=== PATIENT | female | born 1945 | race Caucasian/White ===

== ENCOUNTER 2019-07-17 11:53 | Emergency (ER) | payer MEDICARE, OTHER ==
--- NOTE | 2019-07-17 12:08 | ED Physician Documentation ---
History of Present Illness - Stated complaint Stated Complaint: COUGH/VOMITING - Additonal information Additional information: This is a 73-year-old female with a history of COPD, fibromyalgia, and possible polycythemia vera, who presents with 1 week of cough, nasal drainage, as well as nausea and headache. Patient states she began developing a cough productive of white phlegm around 1 week ago, this has continued, she is also had clear nasal drainage. She is began developing a mild headache over a week ago, this is come and gone somewhat but is currently severe. She has had vomiting for the last 3 days associated with some epigastric discomfort. She states that she has been able to drink sips of fluids, but throws up food. She denies any dysuria, no measured fever. She does have a history of COPD, states her breathing feels that is at her baseline other than her increased cough. Review of Systems Constitutional: denies: Fever Nose: reports: Rhinorrhea / runny nose Cardiac: denies: Chest pain / pressure Respiratory: reports: Cough. denies: Dyspnea GI: reports: Abdominal Pain, Nausea : denies: Dysuria Skin: denies: Rash Neurologic: denies: Generalized weakness Immunocompromised: denies: Immunocompromised PD PAST MEDICAL HISTORY - Past Medical History Cardiovascular: High cholesterol, Murmur Respiratory: Sleep apnea GI: GERD HEENT: Chronic vision loss - Past Surgical History Past Surgical History: Yes - Present Medications Home Medications: Ambulatory Orders Medication Instructions Recorded Confirmed Azithromycin [Zithromax] 0 mg PO DAILY #6 tablet 07/17/19 Benzonatate [Tessalon Perle] 100 - 200 mg PO TID PRN #30 capsule 07/17/19 - Allergies Allergies/Adverse Reactions: Allergies Allergy/AdvReac Type Severity Reaction Status Date / Time nicotine [From Nicoderm CQ] Allergy Intermediate Skin Verified 07/17/19 12:19 Blisters levothyroxine sodium Allergy Unknown Unknown Verified 07/17/19 12:19 - Social History Does the pt smoke?: Yes Smoking Status: Current every day smoker Does the pt drink ETOH?: No Does the pt have substance abuse?: No - Immunizations Immunizations are current?: Yes - POLST Patient has POLST: No PD ED PE NORMAL - Vitals Vital signs reviewed: Yes - General General: Alert and oriented X 3, No acute distress - HEENT HEENT: Atraumatic, PERRL - Neck Neck: Supple, no meningeal sign - Cardiac Cardiac: RRR - Respiratory Respiratory: Other (Intermittent cough with inspiration. Lungs clear to auscultation bilaterally.) - Abdomen Abdomen: Soft, Non distended, Other (Mild tenderness in the left upper quadrant and epigastrium. Negative melara's sign. 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 Intervals are within normal li mits.) - Labs Labs: Laboratory Tests 07/17/19 07/17/19 07/17/19 12:40 12:40 12:40 WBC 6.0 RBC 4.62 Hgb 15.7 Hct 48.1 H MCV 104.1 H MCH 34.0 H MCHC 32.6 RDW 14.5 Plt Count 157 MPV 11.2 H Neut # (Auto) 3.6 Lymph # (Auto) 1.6 [place] # (Auto) 0.7 Eos # (Auto) 0.1 Baso # (Auto) 0.1 Absolute Nucleated RBC 0.00 Nucleated RBC % 0.0 Sodium 143 Potassium 3.2 L Chloride 100 L Carbon Dioxide 30 Anion Gap 13.0 BUN 11 Creatinine 0.7 Estimated GFR (MDRD) 82 L Glucose 128 H Calcium 10.2 Total Bilirubin 2.1 H AST 48 H ALT 24 Alkaline Phosphatase 85 Troponin I High Sens 11.2 Total Protein 8.2 Albumin 3.9 Globulin 4.3 H Albumin/Globulin Ratio 0.9 L Lipase 27 Urine Color Urine Clarity Urine pH Ur Specific [place] Urine Protein Urine Glucose (UA) Urine Ketones Urine Occult Blood Urine Nitrite Urine Bilirubin Urine Urobilinogen Ur Leukocyte Esterase Urine RBC Urine WBC Ur Squamous Epith Cells Urine Bacteria Ur Microscopic Review Urine Culture Comments 07/17/19 14:25 WBC RBC Hgb Hct MCV MCH MCHC RDW Plt Count MPV Neut # (Auto) Lymph # (Auto) [place] # (Auto) Eos # (Auto) Baso # (Auto) Absolute Nucleated RBC Nucleated RBC % Sodium Potassium Chloride Carbon Dioxide Anion Gap BUN Creatinine Estimated GFR (MDRD) Glucose Calcium Total Bilirubin AST ALT Alkaline Phosphatase Troponin I High Sens Total Protein Albumin Globulin Albumin/Globulin Ratio Lipase Urine Color DARK YELLOW Urine Clarity CLEAR Urine pH 7.0 Ur Specific [place] 1.010 Urine Protein NEGATIVE Urine Glucose (UA) NEGATIVE Urine Ketones NEGATIVE Urine Occult Blood TRACE-INTA Urine Nitrite NEGATIVE Urine Bilirubin NEGATIVE Urine Urobilinogen 1 (NORMAL) Ur Leukocyte Esterase TRACE H Urine RBC 0-5 Urine WBC 0-3 Ur Squamous Epith Cells MOD Squamous H Urine Bacteria Few Ur Microscopic Review INDICATED Urine Culture Comments NOT INDICATED - Rads (name of study) Chest Radiology: Other (Bronchial wall thickening suggestive airways disease, stable mildly enlarged cardiac silhouette, reticular opacity lung bases which may present atelectasis or scarring, no lobar consolidations or effusion) PD MEDICAL DECISION MAKING - ED course Complexity details: considered differential (URI, rhinorrhea, biliary colic, cholecystitis, migraine, tension headache, ICH, mass) ED course: On exam patient is non-toxic appearing, neurologic exam normal. Regarding her cough and rhinorrhea, CXR shows slight reticular opacity but no large opacities. URI is probably, though given her history of mild COPD and duration of symptoms we will treat with azithromycin for atypical infection, and tessalon perles for symptom control. She has no wheezing at this time and I do not think she requires steroids. Her headache has no red flags, and after tylenol and ibuprofen it is greatly improved. I discussed supportive care and return precautions. She does have epigastric pain and had some vomiting while in the ED. Labs show no leukocytosis, but AST and bilirubin are slightly elevated. UA negative. She has had some LFT elevations in the past according to patient, and I have a high suspicion for MCNEILL, but given her constellation of symptoms RUQ US was obtained and shows some sludge and small stones without signs of cholecystitis. On repeat exam her abdominal pain and vomiting have resolved. She is feeling much better overall and well enough to go home. I discussed that she may have had a component of biliary colic and should follow up with her PCP and a general surgeon. Return precuations discussed and patient was discharged home in the care of her . Departure - Departure Disposition: 01 Home, Self Care Clinical Impression: Biliary colic, Cough Condition: Good Instructions: ED Gallstone W Biliary Colic Follow-Up: Sapna Watts MD [Primary Care Provider] - Within 1 week Nakul Snowden MD [Provider Admit Priv/Credential] - (To discuss gallbladder removal) Prescriptions: Azithromycin [Zithromax] 0 mg PO DAILY #6 tablet Benzonatate [Tessalon Perle] 100 - 200 mg PO TID PRN #30 capsule PRN Reason: Cough Comments: You were seen today for headache, cough, and vomiting. Your gallbladder has some sludge in it, which may have been the cause of your vomiting and some abdominal discomfort, please follow-up with your regular doctor on this, you will likely need to get your gallbladder removed in the future. Avoid fatty meals/rich foods, which can cause gallbladder attacks. Given how long you have had a cough, we will treat you with azithromycin in case you have an Atypical infection causing this. Please follow-up with your primary care provider on your elevated liver enzymes, your cough, and your gallbladder. Return to the emergency department if you have any new or worsening symptoms Discharge Date/Time: 07/17/19 19:29
[2019-07-17] MEDS ORDERED: SODIUM CHLORIDE 0.9% 1,000 ML IV STA (12:31)
[2019-07-17] MEDS ORDERED: diphenhydrAMINE INJ 50 MG/ML VIAL IVP STA (12:33)
[2019-07-17] MEDS ORDERED: METOCLOPRAMIDE 10 MG/2 ML VIAL IVP STA (12:33)
[2019-07-17] MEDS ORDERED: FAMOTIDINE 20 MG/2 ML VIAL IVP STA (12:37)
[2019-07-17 12:50] LABS: BASOPHILS # (AUTO) 0.1 10^3/uL (0.0-0.1); EOSINOPHILS # (AUTO) 0.1 10^3/uL (0.0-0.7); EOSINOPHILS % (AUTO) 1.5 %; HGB - HEMOGLOBIN 15.7 g/dL (12.0-16.0); LYMPHOCYTES # (AUTO) 1.6 10^3/uL (1.5-3.5); LYMPHOCYTES % (AUTO) 26.2 %; MEAN CORPUSCULAR HGB CONC 32.6 g/dL (32.0-36.0); MEAN CORPUSCULAR VOLUME 104.1 fL (81.0-99.0); MEAN PLATELET VOLUME 11.2 fL (7.9-10.8); MONOCYTES # (AUTO) 0.7 10^3/uL (0.0-1.0); MONOCYTES % (AUTO) 11.1 %; NEUTROPHILS # (AUTO) 3.6 10^3/uL (1.5-6.6); NEUTROPHILS % (AUTO) 59.9 %; PLT - PLATELET COUNT 157 10^3/uL (130-450); RED BLOOD COUNT 4.62 10^6/uL (4.20-5.40); RED CELL DISTRIBUTION WIDTH 14.5 % (12.0-15.0)
[2019-07-17 13:04] LABS: ALBUMIN 3.9 g/dL (3.2-5.5); ALBUMIN/GLOBULIN RATIO 0.9 (1.0-2.2); BILIRUBIN,TOTAL 2.1 mg/dL (0.2-1.0); CALCIUM 10.2 mg/dL (8.5-10.3); CREATININE 0.7 mg/dL (0.4-1.0); TOTAL PROTEIN 8.2 g/dL (6.7-8.2)
--- NOTE | 2019-07-17 14:03 | XRAY Report ---
Reason: Persistent cough Procedure Date: 07/17/2019 Accession Number: [id number] / [id number] Procedure: XR - Chest 1 View X-Ray CPT Code: 67543 FULL RESULT: EXAM: CHEST RADIOGRAPHY EXAM DATE: 07/17/2019 01:08 PM. CLINICAL HISTORY: Persistent cough. COMPARISON: CHEST 1 VIEW 02/17/2016 7:40 PM. TECHNIQUE: 1 view. FINDINGS: Lungs/Pleura: Mild bronchial wall thickening centrally. Small amount of reticular opacity at the lung bases. No lobar consolidation. No large effusion. No pneumothorax. Mediastinum: Cardiac silhouette size appears mildly enlarged, stable. Atherosclerotic vascular calcification. Other: None. IMPRESSION: 1. Mild bronchial wall thickening centrally, suggesting airways disease. 2. Small amount of reticular opacity at the lung bases that may represent mild atelectasis, scarring, and/or pneumonitis in the proper settings. No lobar consolidation or large effusions. 3. Stable mild enlarged cardiac silhouette size. RADIA
[2019-07-17 14:39] LABS: GLUCOSE, URINE (UA) NEGATIVE (NEGATIVE); KETONES,URINE (UA) NEGATIVE (NEGATIVE); LEUKOCYTE ESTERASE, URINE TRACE (NEGATIVE); NITRITE,URINE NEGATIVE (NEGATIVE); OCCULT BLOOD,URINE TRACE-INTA (NEGATIVE); PROTEIN,URINE NEGATIVE (NEGATIVE); UROBILINOGEN,URINE 1 (NORMAL) E.U./dL (NORMAL)
[2019-07-17 14:41] LABS: CLARITY,URINE CLEAR (CLEAR)
[2019-07-17 14:44] LABS: BILIRUBIN,URINE NEGATIVE (NEGATIVE); ICTOTEST,URINE NEGATIVE
[2019-07-17 14:48] LABS: BACTERIA,URINE Few /HPF (None Seen); RBC,URINE 0-5 /HPF (0-5); SQUAMOUS EPITHELIAL CELL,UR MOD Squamous (<= Few)
[2019-07-17] MEDS ORDERED: ACETAMINOPHEN 325 MG TABLET PO STA (15:09)
[2019-07-17] MEDS ORDERED: IBUPROFEN 600 MG TABLET PO STA (15:09)
--- NOTE | 2019-07-17 17:28 | Ultrasound Report ---
Reason: vomiting, RUQ pain, assess for biliary pathology Procedure Date: 07/17/2019 Accession Number: [id number] / [id number] Procedure: US - Abdomen Limited CPT Code: FULL RESULT: EXAM: ABDOMEN ULTRASOUND LIMITED, RUQ EXAM DATE: 07/17/2019 05:10 PM. CLINICAL HISTORY: Vomiting, RUQ pain, assess for biliary pathology. COMPARISON: ABDOMEN LIMITED 02/18/2016 9:37 AM. TECHNIQUE: Real-time scanning was performed with static images obtained. FINDINGS: Liver: No suspicious lesions are seen. There are several anechoic foci within the liver which likely represent cysts. Main portal vein flow: Hepatopetal. Gallbladder: There are small stones and sludge within the gallbladder. No evidence of gallbladder wall thickening. There is a positive sonographic Malcolm sign. Biliary System: CBD measures 5 mm. No evidence of intrahepatic bile duct dilatation. Other: The right kidney demonstrates no hydronephrosis. IMPRESSION: 1. There small shadowing stones and sludge within the gallbladder. There is no evidence of gallbladder wall thickening for sonographic diagnosis of acute cholecystitis. 2. No evidence of intra-or extrahepatic bile duct dilatation. RADIA
[2019-07-17 19:30] VITALS: BP 120/70
== END 2019-07-17 19:29 | disposition home or self-care (01) ==
LOC: ED 11:53
DX: K80.20 Calculus of gallbladder without cholecystitis without obstruction (principal); K82.8 Other specified diseases of gallbladder; R51 Headache; R05 Cough; J44.9 Chronic obstructive pulmonary disease, unspecified; I44.0 Atrioventricular block, first degree; M79.7 Fibromyalgia; F17.200 Nicotine dependence, unspecified, uncomplicated
CPT/HCPCS: 36415; 71045; 76705; 80053; 81001; 83690; 84484; 85025; 93005; 96361; 96374; 96375; 99283; 99284; A9270; J1200; J2765; 81003; 87086

== ENCOUNTER 2019-08-05 15:02 | Inpatient (IN) | payer MEDICARE, OTHER ==
[2019-08-05] MEDS ORDERED: ONDANSETRON 4 MG/2 ML VIAL IVP STA ×2 (15:24→17:48)
[2019-08-05] MEDS ORDERED: SODIUM CHLORIDE 0.9% 1,000 ML IV ONE ×3 (15:24→16:22)
[2019-08-05] MEDS ORDERED: HYDROmorphone 1 MG/ML CARPUJECT IVP STA (15:24)
--- NOTE | 2019-08-05 15:30 | ED Physician Documentation ---
History of Present Illness - Stated complaint Stated Complaint: ABD PX, N/V - Chief complaint Chief Complaint: Abd Pain - History obtained from History obtained from: Patient, Family - History of Present Illness Timing: How many weeks ago (1) Pain level max: 8 Pain level now: 8 - Additonal information Additional information: 73-year-old female presents to the emergency department stating that she has nausea, vomiting and diarrhea for the past week. She states that her abdomen hurts "everywhere". She was being treated with Cefpodoxime for a "infection". Unclear where this infection was. She was seen here approximately 3 weeks ago and had an ultrasound that showed gallstones and sludge in the gallbladder but no cholecystitis. states unable to tolerate p.o. today. No fevers. No blood in the vomit or stool. Patient has been treated for left sided pneumonia recently. this is what the Cefpodoxime was for Review of Systems Ten Systems: 10 systems reviewed and negative Constitutional: denies: Fever, Chills Nose: denies: Rhinorrhea / runny nose, Congestion Throat: denies: Sore throat Respiratory: reports: Dyspnea, Cough GI: reports: Abdominal Pain, Nausea, Vomiting, Diarrhea Skin: denies: Rash Musculoskeletal: denies: Neck pain, Back pain Neurologic: denies: Headache PD PAST MEDICAL HISTORY - Past Medical History Cardiovascular: High cholesterol, Murmur Respiratory: Sleep apnea GI: GERD HEENT: Chronic vision loss Musculoskeletal: Fibromyalgia - Past Surgical History Past Surgical History: Yes - Present Medications Home Medications: Ambulatory Orders Medication Instructions Recorded Confirmed Benzonatate [Tessalon Perle] 100 - 200 mg PO TID PRN #30 capsule 07/17/19 RX: Azithromycin [Zithromax] 0 mg PO DAILY #6 tablet 07/17/19 - Allergies Allergies/Adverse Reactions: Allergies Allergy/AdvReac Type Severity Reaction Status Date / Time nicotine [From Nicoderm CQ] Allergy Intermediate Skin Verified 08/05/19 15:18 Blisters levothyroxine sodium Allergy Unknown Unknown Verified 08/05/19 15:18 - Social History Does the pt smoke?: Yes Smoking Status: Current every day smoker Does the pt drink ETOH?: No Does the pt have substance abuse?: No - Immunizations Immunizations are current?: Yes - POLST Patient has POLST: No PD ED PE NORMAL - Vitals Vital signs reviewed: Yes - General General: Alert and oriented X 3, Other (dry lips and tongue) - HEENT HEENT: Other (dry lips) - Neck Neck: Supple, no meningeal sign - Cardiac Cardiac: RRR - Respiratory Respiratory: No respiratory distress, Other (crackles bibasilar) - Abdomen Abdomen: Soft, Other (Diffuse tenderness to palpation. No peritoneal signs.) - Derm Derm: Warm and dry, No rash - Extremities Extremities: No edema - Neuro Neuro: Alert and oriented X 3 Results - Vitals Vitals: Vital Signs - 24 hr 08/05/19 08/05/19 08/05/19 15:14 15:45 16:15 Temperature 36.6 C Heart Rate 103 H 77 82 Respiratory 22 16 Rate Blood Pressure 135/72 H 148/96 H 150/89 H O2 Saturation 94 96 96 Oxygen O2 Source Nasal cannula - Labs Labs: Laboratory Tests 08/05/19 08/05/19 15:54 15:54 WBC 5.4 RBC 4.92 Hgb 16.8 H Hct 50.9 H MCV 103.5 H MCH 34.1 H MCHC 33.0 RDW 15.0 Plt Count 164 MPV 11.8 H Neut # (Auto) 2.6 Lymph # (Auto) 1.6 [place] # (Auto) 1.0 Eos # (Auto) 0.1 Baso # (Auto) 0.1 Absolute Nucleated RBC 0.00 Nucleated RBC % 0.0 Sodium 143 Potassium 2.8 L Chloride 101 Carbon Dioxide 31 Anion Gap 11.0 BUN 12 Creatinine 0.7 Estimated GFR (MDRD) 82 L Glucose 135 H Calcium 10.4 H Total Bilirubin 1.5 H AST 45 H ALT 22 Alkaline Phosphatase 82 Total Protein 7.7 Albumin 3.5 Globulin 4.2 Albumin/Globulin Ratio 0.8 L Lipase 25 - Rads (name of study) CT abdomen pelvis Radiology: Prelim report reviewed, EMP read contemporaneously, See rad report (Left lower lobe pneumonia. Lobular liver contour, correlate as to the presence of cirrhosis. Cholelithiasis. ) PD MEDICAL DECISION MAKING - ED course Complexity details: reviewed results, re-evaluated patient, considered differential, d/w patient ED course: 73-year-old female with persistent vomiting. Given Zofran, Phenergan, Zofran again. Still feeling nauseated and unable to tolerate much p.o. She is hypokalemic as well. Had an episode of bradycardia while in the emergency department, heart rate dropped to upper 30s. She has also failed outpatient antibiotics for her pneumonia. Given Rocephin and azithromycin IV. Blood cultures drawn. Lactate drawn. Discussed the case with the hospitalist, Dr. Cruz who accepts. This document was made in part using voice recognition software. While efforts are made to proofread this document, sound alike and grammatical errors may occur. Would recommend a repeat chest CT after resolution of the pneumonia to ensure that there is no mass in the left lower lung. Departure - Departure Disposition: 66 [facility] DC/Xfer Clinical Impression: Hypokalemia, Dehydration Pneumonia Qualifiers: Pneumonia type: due to unspecified organism Laterality: left Lung location: lower lobe of lung Qualified Code(s): J18.1 - Lobar pneumonia, unspecified organism Vomiting Qualifiers: Vomiting type: unspecified Vomiting Intractability: intractable Nausea presence: with nausea Qualified Code(s): R11.2 - Nausea with vomiting, unspecified Condition: Stable
[2019-08-05] MEDS ORDERED: IOVERSOL 320 100 ML VIAL IVP ONE ×2 (15:38→16:51)
[2019-08-05 16:04] LABS: BASOPHILS # (AUTO) 0.1 10^3/uL (0.0-0.1); BASOPHILS % (AUTO) 1.1 %; EOSINOPHILS # (AUTO) 0.1 10^3/uL (0.0-0.7); EOSINOPHILS % (AUTO) 1.7 %; HGB - HEMOGLOBIN 16.8 g/dL (12.0-16.0); LYMPHOCYTES # (AUTO) 1.6 10^3/uL (1.5-3.5); LYMPHOCYTES % (AUTO) 29.5 %; MEAN CORPUSCULAR HEMOGLOBIN 34.1 pg (27.0-31.0); MEAN CORPUSCULAR VOLUME 103.5 fL (81.0-99.0); MEAN PLATELET VOLUME 11.8 fL (7.9-10.8); MONOCYTES % (AUTO) 18.3 %; NEUTROPHILS # (AUTO) 2.6 10^3/uL (1.5-6.6); NEUTROPHILS % (AUTO) 48.7 %; PLT - PLATELET COUNT 164 10^3/uL (130-450); RED BLOOD COUNT 4.92 10^6/uL (4.20-5.40); WHITE BLOOD COUNT 5.4 x10^3/uL (4.8-10.8)
[2019-08-05 16:19] LABS: ALBUMIN 3.5 g/dL (3.2-5.5); ALBUMIN/GLOBULIN RATIO 0.8 (1.0-2.2); BILIRUBIN,TOTAL 1.5 mg/dL (0.2-1.0); CALCIUM 10.4 mg/dL (8.5-10.3); CREATININE 0.7 mg/dL (0.4-1.0); TOTAL PROTEIN 7.7 g/dL (6.7-8.2)
[2019-08-05] MEDS ORDERED: PROMETHAZINE INJ 25 MG in SODIUM CHLORIDE 0.9% 50 ML IV STA (16:21)
--- NOTE | 2019-08-05 17:37 | CT Report ---
Reason: diffuse abd pain, vomiting Procedure Date: 08/05/2019 Accession Number: [id number] / [id number] Procedure: CT - Abdomen/Pelvis W CPT Code: FULL RESULT: EXAM: CT ABDOMEN AND PELVIS EXAM DATE: 08/05/2019 04:49 PM. CLINICAL HISTORY: Diffuse abd pain, vomiting. COMPARISONS: CHEST W/O 04/19/2016 8:51 AM. TECHNIQUE: Routine helical CT imaging was performed through the abdomen and pelvis. IV contrast: OPTI 320 100ML. Enteric contrast: No. Reconstructions: Coronal and sagittal. In accordance with CT protocol optimization, one or more of the following dose reduction techniques were utilized for this exam: automated exposure control, adjustment of mA and/or KV based on patient size, or use of iterative reconstructive technique. FINDINGS: ABDOMEN: Lung Bases: Incompletely included lower lungs demonstrate patchy areas of consolidation in the left lower lobe with groundglass.. Heart size is within normal limits. No basilar effusions. Liver: Lobular liver contour. 2.1 cm right hepatic lobe cyst. Other low-attenuation is to small characterize, also likely reflect cysts. Spleen: Unremarkable. Pancreas: Unremarkable. Gallbladder/Bile Ducts: Cholelithiasis. Common bile duct measures 10 mm. No intrahepatic ductal dilatation. Adrenal Glands: Unremarkable. Kidneys: No mass, calculi, or hydronephrosis. Peritoneum/Mesentery/Bowel: No free fluid, free air, or collection. No intestinal obstruction or inflammation. Lymph nodes: No mesenteric, periportal, or retroperitoneal lymphadenopathy. Vasculature: Abdominal aorta is nonaneurysmal. Portal vein is patent. Hepatic veins are patent. PELVIS: The bladder is unremarkable for the degree of distention. Uterus is present. No obvious abnormally enlarged adnexal abnormalities. No pelvic lymphadenopathy. Bones: No suspicious osseous lesions. Severe degenerative disk disease from L4 S1. IMPRESSION: Left lower lobe pneumonia. Lobular liver contour, correlate as to the presence of cirrhosis. Cholelithiasis. RADIA
[2019-08-05] MEDS ORDERED: POTASSIUM CHLOR 10 MEQ/100 ML 10 MEQ/100 ML BAG IV ONE (17:49)
[2019-08-05] MEDS ORDERED: AZITHROMYCIN INJ 500 MG in SODIUM CHLORIDE 0.9% 250 ML IV STA (17:49)
[2019-08-05] MEDS ORDERED: cefTRIAXone 1 GM VIAL IVP STA (17:49)
[2019-08-05] MEDS ORDERED: MORPHINE 2 MG/ML CARPUJECT IVP PRN (18:19)
[2019-08-05] MEDS ORDERED: PROMETHAZINE 25 MG/1 ML VIAL IM PRN (18:19)
--- NOTE | 2019-08-05 19:18 | HISTORY & PHYSICAL EXAMINATION ---
Chief Complaint - Chief Complaint Chief Complaint: n/v/d History of Present Illness - Admitted From Admitted From:: [facility] - History Obtained From Records Reviewed: yes History obtained from: patient - History of Present Illness HPI Comment/Other: Patient seen and examined on 08/05/19 around 1945pm Patient is a 73 y/o female who presented to the ED with complain of nausea, vomiting and diarrhea. Her symptoms have been going on for a couple of weeks, but has gotten progressively worse. She has also been coughing. This is significantly interfering with her sleep. Today she had 3 episodes of vomiting with the most significant being in the ED. She complains of chest pain and back pain which appear to be positional. She complains of epigastric pain. She denies fever but reports chills. She has not been around anybody sick. She has not been out of the house for the the past 2-3 years. She would venture as far as the front of the house for air. The main reason is due to frequent falls. She requires help getting in and out of the bath tub. She ambulates without any walking aid at home. Her lower extremity are dry, scaly and dusky in appearance. Overall she appears uncomfortable and upset as a result. In the ED work up included a CT of the abdomen/pelvis. Though unremarkable for any significant intra-abdominal process, it indicated a left lower lobe pneumonia. As a result she is being admitted for further treatment. History - Past Medical History Cardiovascular: reports: Murmur Respiratory: reports: Sleep apnea Endocrine/Autoimmune: reports: HyPOthyroidism GI: reports: GERD HEENT: reports: Chronic vision loss Musculoskeletal: reports: Fibromyalgia MRSA Hx?: No - Past Surgical History Other past surgical history: Dental excision of extensive torus palatinus, which required full dental extraction in [address] [place] in [place] - Family & Social History Family History: Mother: (polio), Father: Cancer (unspecified) Family History Comment/Other: paternal aunt and cousin: breast cancer Living arrangement: At home Living Situation: With family Social History Notes: She smoked for over 50 years but quit about 3 years ago. She denies alcohol use. She uses edible marijuana products - POLST Patient has POLST: No POLST Status: Full Code Meds/Allgy - Home Medications Home Medications: Ambulatory Orders Medication Instructions Recorded Confirmed Azithromycin [Zithromax] 0 mg PO DAILY #6 tablet 07/17/19 Benzonatate [Tessalon Perle] 100 - 200 mg PO TID PRN #30 capsule 07/17/19 - Allergies Allergies/Adverse Reactions: Allergies Allergy/AdvReac Type Severity Reaction Status Date / Time nicotine [From Nicoderm CQ] Allergy Intermediate Skin Verified 08/05/19 15:18 Blisters levothyroxine sodium Allergy Unknown Unknown Verified 08/05/19 15:18 Review of Systems - Constitutional Constitutional: reports: Chills, Weakness. denies: Fever, Diaphoresis - Eyes Eyes: denies: Blurred vision, Dipolpia - Ears, Nose & Throat Ears, Nose & Throat: denies: Vertigo, Nasal discharge, Sore throat - Cardiovascular Cariovascular: denies: Chest pain, Edema - Respiratory Respiratory: denies: Cough, Wheezing, SOB at rest, SOB with exertion - Gastrointestinal Gastrointestinal: reports: Abdominal pain, Diarrhea, Nausea, Vomiting, Reflux/heartburn. denies: Abdominal distention, Constipation, Black stools, Bloody stools, Coffee grounds emesis - Genitourinary Genitourinary: denies: Dysuria, Frequency, Urgency, Hematuria, Incontinence, Flank pain - Musculoskeletal Musculoskeletal: reports: Back pain. denies: Muscle aches - Integumentary Integumentary: reports: Dryness. denies: Rash, Pruritis, Lesions - Neurological Neurological: reports: General weakness. denies: Focal weakness, Headache, Dizziness - Psychiatric Psychiatric: denies: Depression, Anxiety - Endocrine Endocrine: denies: Polyuria, Polydypsia - Hematologic/Lymphatic Hematologic/Lymphatic: denies: Anemia, Bruising Prior Level of Functionality: She requires some help getting in and out of the bath tub. She otherwise ambulates around the house without any walking aid. However, it is reported that she has frequent falls. She has not been out of her premises in 2-3 years. Exam - Vital Signs Vital Signs: Vital Signs x48h Temp Pulse Resp BP Pulse Ox 08/05/19 18:45 80 12 159/83 H 96 08/05/19 18:00 36.5 C 78 14 169/93 H 94 08/05/19 16:15 82 16 150/89 H 96 08/05/19 15:45 77 148/96 H 96 08/05/19 15:14 36.6 C 103 H 22 135/72 H 94 - Physical Exam General Appearance: positive: Alert, Moderate distress Eyes Bilateral: positive: Normal inspection, PERRL, EOMI ENT: positive: Dry mucous membranes Neck: positive: Nml inspection, No JVD, Trachea midline Respiratory: positive: Wheezes. negative: Chest non-tender, Breath sounds nml Cardiovascular: positive: Tachycardia Abdomen: positive: Non-tender, Nml bowel sounds, No distention. negative: Guarding, Rebound Back: positive: Nml inspection Skin: positive: No rash, Warm, Dry, Other (scaly and dusky appearance of lower extremities) Extremities: positive: Non-tender, Full ROM, No pedal edema Neurologic/Psychiatric: positive: Oriented x3, CN's nml (2-12), Motor nml, Sensation nml Conclusion/Plan - Problem List (1) Pneumonia Conclusion/Plan: Patient on rocephin and azithromycin Will continue Qualifiers: Pneumonia type: due to unspecified organism Laterality: left Lung location: lower lobe of lung Qualified Code(s): J18.1 - Lobar pneumonia, unspecified organism (2) Hypokalemia Conclusion/Plan: Patient receive KCl 40 mEq IV and 40mEq po Will recheck with am labs (4) Vomiting Conclusion/Plan: Zofran IV prn Qualifiers: Vomiting type: unspecified Vomiting Intractability: intractable Nausea presence: with nausea Qualified Code(s): R11.2 - Nausea with vomiting, unspecified (5) GERD (gastroesophageal reflux disease) Conclusion/Plan: On protonix 40mg IV daily (6) Hypothyroid Conclusion/Plan: Does not take synthroid because she reacts to a component in it. On takes supplements (7) Sleep apnea Conclusion/Plan: Did not tolerate CPAP - Lab Results Fish Bones: 08/06/19 05:05 08/06/19 05:05 Core Measures - Anticipated LOS I expect patient to be DC'd or transferred within 96 hours.: Yes - DVT/VTE - Prophylaxis VTE/DVT Device ordered at admit?: Yes VTE/DVT Prophylaxis med ordered at admit?: Yes
[2019-08-05] MEDS ORDERED: POTASSIUM CHLOR 10 MEQ/100 ML 10 MEQ/100 ML BAG IV SCH (20:00)
[2019-08-05] MEDS: PANTOPRAZOLE 40 MG VIAL IVP SCH (20:32)
[2019-08-05] MEDS: SODIUM CHLORIDE FLUSH 0.9% 10 ML SYRINGE IVP PRN ×2 (20:33→20:58)
[2019-08-05] MEDS: POTASSIUM CHLORIDE 20 MEQ TABLET PO ONE ×2 (20:33→21:36)
[2019-08-05] MEDS: HYDROmorphone 1 MG/ML CARPUJECT IVP PRN (20:57)
[2019-08-05] MEDS: guaiFENesin 600 MG TABLET PO SCH ×2 (20:58→21:34)
[2019-08-05] MEDS ORDERED: HEPARIN 5,000 UNIT/ML VIAL SUBQ SCH (21:00)
[2019-08-05] MEDS: ONDANSETRON 4 MG/2 ML VIAL IVP PRN (21:07)
[2019-08-05] MEDS: SODIUM CHLORIDE 0.9% 1,000 ML IV SCH (21:12)
[2019-08-05] MEDS: POTASSIUM CHLOR 10 MEQ/100 ML 10 MEQ/100 ML BAG IV SCH ×2 (22:11→23:19)
[2019-08-06] MEDS: POTASSIUM CHLOR 10 MEQ/100 ML 10 MEQ/100 ML BAG IV SCH (00:19)
[2019-08-06] MEDS: PROCHLORPERAZINE 10 MG/2 ML VIAL IVP PRN ×3 (00:24→18:19)
[2019-08-06] MEDS: SODIUM CHLORIDE FLUSH 0.9% 10 ML SYRINGE IVP SCH ×3 (00:25→17:26)
[2019-08-06] MEDS: SODIUM CHLORIDE FLUSH 0.9% 10 ML SYRINGE IVP PRN ×4 (00:25→07:14)
[2019-08-06] MEDS: HYDROmorphone 1 MG/ML CARPUJECT IVP PRN ×5 (01:30→22:00)
[2019-08-06] MEDS: SODIUM CHLORIDE 0.9% 1,000 ML IV SCH ×3 (05:22→19:13)
[2019-08-06 05:23] LABS: BASOPHILS % (AUTO) 0.7 %; EOSINOPHILS % (AUTO) 0.6 %; HGB - HEMOGLOBIN 14.1 g/dL (12.0-16.0); LYMPHOCYTES # (AUTO) 1.4 10^3/uL (1.5-3.5); MEAN CORPUSCULAR HEMOGLOBIN 33.4 pg (27.0-31.0); MEAN CORPUSCULAR HGB CONC 31.3 g/dL (32.0-36.0); MEAN CORPUSCULAR VOLUME 106.9 fL (81.0-99.0); MEAN PLATELET VOLUME 11.9 fL (7.9-10.8); MONOCYTES % (AUTO) 18.7 %; NEUTROPHILS # (AUTO) 2.9 10^3/uL (1.5-6.6); NEUTROPHILS % (AUTO) 54.3 %; PLT - PLATELET COUNT 140 10^3/uL (130-450); RED BLOOD COUNT 4.22 10^6/uL (4.20-5.40); WHITE BLOOD COUNT 5.4 x10^3/uL (4.8-10.8)
[2019-08-06 05:30] LABS: ALBUMIN/GLOBULIN RATIO 0.9 (1.0-2.2); BILIRUBIN,TOTAL 1.1 mg/dL (0.2-1.0); CALCIUM 9.2 mg/dL (8.5-10.3); CREATININE 0.5 mg/dL (0.4-1.0); MAGNESIUM 2.1 mg/dL (1.7-2.8); TOTAL PROTEIN 6.3 g/dL (6.7-8.2)
[2019-08-06 05:58] LABS: FOLATE 13.74 ng/mL (5.90 - >24.8)
[2019-08-06] MEDS: PANTOPRAZOLE 40 MG VIAL IVP SCH (06:41)
[2019-08-06] MEDS: cefTRIAXone 2 GM in SODIUM CHLORIDE 0.9% MINIBAG 100 ML IV SCH (08:48)
[2019-08-06] MEDS: ENOXAPARIN 40 MG/0.4 ML SYRINGE SUBQ SCH (08:48)
[2019-08-06] MEDS: SACCHAROMYCES BOULARDII 250 MG CAPSULE PO SCH ×2 (08:49→21:29)
[2019-08-06] MEDS: guaiFENesin 600 MG TABLET PO SCH ×2 (08:49→21:29)
[2019-08-06] MEDS: POLYETHYLENE GLYCOL 3350 17 GM PACKET PO SCH (08:56)
[2019-08-06] MEDS: ONDANSETRON 4 MG/2 ML VIAL IVP PRN ×3 (08:56→21:26)
[2019-08-06] MEDS ORDERED: cefTRIAXone 1 GM VIAL IV SCH (09:00)
[2019-08-06] MEDS ORDERED: AZITHROMYCIN INJ 250 MG in SODIUM CHLORIDE 0.9% 250 ML IV SCH (09:00)
[2019-08-06] MEDS: AZITHROMYCIN INJ 500 MG in SODIUM CHLORIDE 0.9% 250 ML IV SCH (10:49)
--- NOTE | 2019-08-06 13:06 | PROVIDER PROGRESS NOTE ---
Assessment/Plan - Problem List (1) Pneumonia Qualifiers: Pneumonia type: due to unspecified organism Laterality: left Lung location: lower lobe of lung Qualified Code(s): J18.1 - Lobar pneumonia, unspecified organism Assessment/Plan: 08/06 pt failed out-pt treatment for pneumonia. CXR reveals left lower lobe pneumonia. pt has 92% sats on 3 liter of O2 continue rocephin and azithromycin blood culture is pending (2) Hypokalemia 08/06 resolved (4) Vomiting Conclusion/Plan: 08/06 pt report better. it is likely caused by virus gastritis, continue Zofran IV prn continue IVF of NS continue lab monitor (5) GERD (gastroesophageal reflux disease) Conclusion/Plan: On protonix 40mg IV daily (6) Hypothyroid Conclusion/Plan: 08/06 slight lower TSH, will check free T4, and followup pt did not take synthorid (7) Sleep apnea Conclusion/Plan: stable. - Current Meds Current Meds: Current Medications Generic Name Dose Route Start Last Admin Trade Name Freq PRN Reason Stop Dose Admin Enoxaparin Sodium 40 mg 08/06/19 09:00 08/06/19 08:48 Lovenox SUBQ 40 mg DAILY OWEN Administration Guaifenesin 600 mg 08/05/19 21:00 08/06/19 08:49 Mucinex PO 600 mg BID OWEN Administration Hydromorphone HCl 1 mg 08/05/19 18:36 08/06/19 11:22 Dilaudid Inj Carp IVP 1 mg Q2HR PRN Administration PAIN Ceftriaxone Sodium 2 gm/ 100 mls @ 200 mls/hr 08/06/19 09:00 08/06/19 09:28 Sodium Chloride IV Infused DAILY OWEN Infusion Sodium Chloride 1,000 mls @ 83.333 mls/hr 08/06/19 09:00 08/06/19 08:59 Normal Saline 0.9% IV 83.333 mls/hr .Q12H OWEN Administration Azithromycin 500 mg/ Sodium 250 mls @ 83.33 mls/hr 08/06/19 10:30 08/06/19 12:46 Chloride IV 08/07/19 11:59 Infused DAILY OWEN Infusion Ondansetron HCl 4 mg 08/05/19 18:19 08/06/19 08:56 Zofran Inj IVP 4 mg Q6HR PRN Administration Nausea / Vomiting Pantoprazole Sodium 40 mg 08/05/19 19:00 08/06/19 06:41 Protonix IVP 40 mg QDAC OWEN Administration Polyethylene Glycol 17 gm 08/06/19 09:00 08/06/19 08:56 Miralax PO Not Given DAILY OWEN Prochlorperazine Edisylate 10 mg 08/05/19 18:19 08/06/19 11:22 Compazine Inj IVP 10 mg Q6HR PRN Administration Nausea / Vomiting Saccharomyces Boulardii 250 mg 08/06/19 08:00 08/06/19 08:49 Florastor PO 250 mg BIDWM OWEN Administration Sodium Chloride 10 ml 08/05/19 18:19 08/06/19 07:14 Normal Saline Flush 0.9% IVP 10 ml PRN PRN Administration NEEDED PER PROVIDER ORDERS Sodium Chloride 10 ml 08/06/19 01:00 08/06/19 08:59 Normal Saline Flush 0.9% IVP 10 ml 0100,0900,1700 OWEN Administration - Lab Result Fish Bone Diagrams: 08/06/19 05:05 08/06/19 05:05 - Additional Planning My Orders: My Active Orders 08/05/19 18:19 Activity Orders [RC] Q2HR IO [RC] IOSHIFT Initiate Bowel Care Protocol [RC] .protocol Initiate Line Care Protocol [RC] QSHIFT Initiate Personal Care Protoco [RC] .protocol Oxygen Therapy [RC] Routine Telemetry- [RC] Q4HR Vital Signs [RC] Q4HR Acetaminophen [Tylenol] 650 mg PO Q4HR PRN Ondansetron Inj [Zofran Inj] 4 mg IVP Q6HR PRN Prochlorperazine Inj [Compazine Inj] 10 mg IVP Q6HR PRN Promethazine Inj [Phenergan Inj] 25 mg IM Q6HR PRN Sodium Chloride Flush 0.9% [Normal Saline Flush 0.9%] 10 ml IVP PRN PRN Zolpidem [Ambien] 5 mg PO QPM PRN Code Status [OTHERS] Routine Condition of Patient [OTHERS] Routine DVT Prophylaxis [OTHERS] Routine 08/05/19 18:22 IV Insert [RC] .ONCE 08/05/19 18:23 SCDs [RC] QSHIFT 08/05/19 18:36 HYDROmorphone INJ CARP [Dilaudid Inj Carp] 1 mg IVP Q2HR PRN 08/05/19 18:37 Benzonatate [Tessalon] 100 mg PO TID PRN 08/05/19 19:00 Pantoprazole [Protonix] 40 mg IVP QDAC 08/05/19 Dinner Clear Liquid Diet [DIET] 08/06/19 01:00 Sodium Chloride Flush 0.9% [Normal Saline Flush 0.9%] 10 ml IVP 0100,0900,1700 08/06/19 08:00 Saccharomyces Boulardii [Florastor] 250 mg PO BIDWM 08/06/19 09:00 Enoxaparin [Lovenox] 40 mg SUBQ DAILY Polyethylene Glycol 3350 [Miralax] 17 gm PO DAILY Sodium Chloride 0.9% [Normal Saline 0.9%] 1,000 ml IV 83.333 mls/hr cefTRIAXone [Rocephin] 2 gm Sodium Chloride 0.9% Minibag [Normal Saline 0.9% Minibag] 100 ml IV DAILY 08/06/19 10:30 Azithromycin Inj [Zithromax Inj] 500 mg Sodium Chloride 0.9% [Normal Saline 0.9%] 250 ml IV DAILY 08/07/19 05:00 CBC - COMP BLD CT W/AUTO DIFF [HEME] DAILYLAB CMP [COMPREHENSIVE METABOLIC PANEL] [CHEM] DAILYLAB FREE T4 (FREE THYROXINE) [IAI] DAILYLAB 08/08/19 05:00 CBC - COMP BLD CT W/AUTO DIFF [HEME] DAILYLAB CMP [COMPREHENSIVE METABOLIC PANEL] [CHEM] DAILYLAB 08/09/19 05:00 CBC - COMP BLD CT W/AUTO DIFF [HEME] DAILYLAB CMP [COMPREHENSIVE METABOLIC PANEL] [CHEM] DAILYLAB Subjective - Subjective Patient Reports: Feeling Better Objective Vital Signs: Vital Signs - 24 hr 08/05/19 08/05/19 08/05/19 15:14 15:45 16:15 Temperature 36.6 C Heart Rate 103 H 77 82 Heart Rate [ Brachial] Respiratory 22 16 Rate Blood Pressure 135/72 H 148/96 H 150/89 H Blood Pressure [Right Radial artery] O2 Saturation 94 96 96 08/05/19 08/05/19 08/05/19 18:00 18:45 23:40 Temperature 36.5 C 36.5 C Heart Rate 78 80 Heart Rate [ 87 Brachial] Respiratory 14 12 18 Rate Blood Pressure 169/93 H 159/83 H Blood Pressure 154/86 H [Right Radial artery] O2 Saturation 94 96 92 08/06/19 08/06/19 04:59 09:00 Temperature 36.7 C 36.4 C L Heart Rate Heart Rate [ 92 50 L Brachial] Respiratory 18 18 Rate Blood Pressure Blood Pressure 133/64 H 156/71 H [Right Radial artery] O2 Saturation 90 L 92 Oxygen O2 Source Nasal cannula I&O (Last 24 Hrs): Intake and Output Totals x24h 08/04/19 08/05/19 08/06/19 23:59 23:59 23:59 Intake Total 2101 2736.667 Output Total 200 500 Balance 1901 2236.667 General: Alert, No acute distress HEENT: Atraumatic Neck: Supple Lymphatic: no adenopathy Neuro: Alert, Oriented Times 3 Cardiovascular: Regular rate Respiratory: Chest non-tender, No respiratory distress Abdomen: Normal bowel sounds Extremities: No clubbing - Results Results: Laboratory Results WBC 5.4 x10^3/uL (4.8-10.8) 08/06/19 05:05 RBC 4.22 10^6/uL (4.20-5.40) 08/06/19 05:05 Hgb 14.1 g/dL (12.0-16.0) 08/06/19 05:05 Hct 45.1 % (37.0-47.0) 08/06/19 05:05 MCV 106.9 fL (81.0-99.0) H 08/06/19 05:05 MCH 33.4 pg (27.0-31.0) H 08/06/19 05:05 MCHC 31.3 g/dL (32.0-36.0) L 08/06/19 05:05 RDW 15.0 % (12.0-15.0) 08/06/19 05:05 Plt Count 140 10^3/uL (130-450) 08/06/19 05:05 MPV 11.9 fL (7.9-10.8) H 08/06/19 05:05 Neut # (Auto) 2.9 10^3/uL (1.5-6.6) 08/06/19 05:05 Lymph # (Auto) 1.4 10^3/uL (1.5-3.5) L 08/06/19 05:05 [place] # (Auto) 1.0 10^3/uL (0.0-1.0) 08/06/19 05:05 Eos # (Auto) 0.0 10^3/uL (0.0-0.7) 08/06/19 05:05 Baso # (Auto) 0.0 10^3/uL (0.0-0.1) 08/06/19 05:05 Absolute Nucleated RBC 0.00 x10^3/uL 08/06/19 05:05 Nucleated RBC % 0.0 /100WBC 08/06/19 05:05 Sodium 145 mmol/L (135-145) 08/06/19 05:05 Potassium 3.8 mmol/L (3.5-5.0) 08/06/19 05:05 Chloride 107 mmol/L (101-111) 08/06/19 05:05 Carbon Dioxide 32 mmol/L (21-32) 08/06/19 05:05 Anion Gap 6.0 (6-13) 08/06/19 05:05 BUN 9 mg/dL (6-20) 08/06/19 05:05 Creatinine 0.5 mg/dL (0.4-1.0) 08/06/19 05:05 Estimated GFR (MDRD) 122 (>89) 08/06/19 05:05 Glucose 129 mg/dL (70-100) H 08/06/19 05:05 Lactic Acid 1.7 mmol/L (0.5-2.2) 08/05/19 18:22 Calcium 9.2 mg/dL (8.5-10.3) 08/06/19 05:05 Magnesium 2.1 mg/dL (1.7-2.8) 08/06/19 05:05 Total Bilirubin 1.1 mg/dL (0.2-1.0) H 08/06/19 05:05 AST 36 IU/L (10-42) 08/06/19 05:05 ALT 20 IU/L (10-60) 08/06/19 05:05 Alkaline Phosphatase 68 IU/L (42-121) 08/06/19 05:05 Troponin I High Sens 9.8 pg/mL (2.3-14.8) 08/06/19 00:45 Total Protein 6.3 g/dL (6.7-8.2) L 08/06/19 05:05 Albumin 3.0 g/dL (3.2-5.5) L 08/06/19 05:05 Globulin 3.3 g/dL (2.1-4.2) 08/06/19 05:05 Albumin/Globulin Ratio 0.9 (1.0-2.2) L 08/06/19 05:05 Lipase 25 U/L (22-51) 08/05/19 15:54 Vitamin B12 2180 pg/mL (180-914) H 08/06/19 05:05 Folate 13.74 ng/mL (5.90 - >24.8) 08/06/19 05:05 TSH 0.31 uIU/mL (0.34-5.60) L 08/06/19 05:09 Ethyl Alcohol < 5.0 mg/dL 08/05/19 15:54 Sepsis Event Note (H) - Evaluation Current Stage of Sepsis: Ruled out ABX Reporting Has patient been on IV antibiotics over the past 48 hours?: Yes Current Medications - Current Medications Current Medications: Current Medications Generic Name Dose Route Start Last Admin Trade Name Freq PRN Reason Stop Dose Admin Enoxaparin Sodium 40 mg 08/06/19 09:00 08/06/19 08:48 Lovenox SUBQ 40 mg DAILY OWEN Administration Guaifenesin 600 mg 08/05/19 21:00 08/06/19 08:49 Mucinex PO 600 mg BID OWEN Administration Hydromorphone HCl 1 mg 08/05/19 18:36 08/06/19 11:22 Dilaudid Inj Carp IVP 1 mg Q2HR PRN Administration PAIN Ceftriaxone Sodium 2 gm/ 100 mls @ 200 mls/hr 08/06/19 09:00 08/06/19 09:28 Sodium Chloride IV Infused DAILY OWEN Infusion Sodium Chloride 1,000 mls @ 83.333 mls/hr 08/06/19 09:00 08/06/19 08:59 Normal Saline 0.9% IV 83.333 mls/hr .Q12H OWEN Administration Azithromycin 500 mg/ Sodium 250 mls @ 83.33 mls/hr 08/06/19 10:30 08/06/19 12:46 Chloride IV 08/07/19 11:59 Infused DAILY OWEN Infusion Ondansetron HCl 4 mg 08/05/19 18:19 08/06/19 08:56 Zofran Inj IVP 4 mg Q6HR PRN Administration Nausea / Vomiting Pantoprazole Sodium 40 mg 08/05/19 19:00 08/06/19 06:41 Protonix IVP 40 mg QDAC OWEN Administration Polyethylene Glycol 17 gm 08/06/19 09:00 08/06/19 08:56 Miralax PO Not Given DAILY OWEN Prochlorperazine Edisylate 10 mg 08/05/19 18:19 08/06/19 11:22 Compazine Inj IVP 10 mg Q6HR PRN Administration Nausea / Vomiting Saccharomyces Boulardii 250 mg 08/06/19 08:00 08/06/19 08:49 Florastor PO 250 mg BIDWM OWEN Administration Sodium Chloride 10 ml 08/05/19 18:19 08/06/19 07:14 Normal Saline Flush 0.9% IVP 10 ml PRN PRN Administration NEEDED PER PROVIDER ORDERS Sodium Chloride 10 ml 08/06/19 01:00 08/06/19 08:59 Normal Saline Flush 0.9% IVP 10 ml 0100,0900,1700 OWEN Administration
[2019-08-07] MEDS: PROCHLORPERAZINE 10 MG/2 ML VIAL IVP PRN ×2 (01:09→08:20)
[2019-08-07] MEDS: SODIUM CHLORIDE FLUSH 0.9% 10 ML SYRINGE IVP SCH ×3 (01:09→15:24)
[2019-08-07] MEDS: SODIUM CHLORIDE FLUSH 0.9% 10 ML SYRINGE IVP PRN ×2 (02:09→20:27)
[2019-08-07] MEDS: HYDROmorphone 1 MG/ML CARPUJECT IVP PRN ×4 (02:09→20:26)
[2019-08-07] MEDS: ONDANSETRON 4 MG/2 ML VIAL IVP PRN ×2 (04:43→11:53)
[2019-08-07 04:49] LABS: BASOPHILS # (AUTO) 0.1 10^3/uL (0.0-0.1); BASOPHILS % (AUTO) 0.8 %; EOSINOPHILS % (AUTO) 0.7 %; HGB - HEMOGLOBIN 14.4 g/dL (12.0-16.0); LYMPHOCYTES # (AUTO) 1.3 10^3/uL (1.5-3.5); LYMPHOCYTES % (AUTO) 21.7 %; MEAN CORPUSCULAR HEMOGLOBIN 33.5 pg (27.0-31.0); MEAN CORPUSCULAR HGB CONC 31.1 g/dL (32.0-36.0); MEAN CORPUSCULAR VOLUME 107.7 fL (81.0-99.0); MONOCYTES # (AUTO) 1.1 10^3/uL (0.0-1.0); NEUTROPHILS # (AUTO) 3.4 10^3/uL (1.5-6.6); PLT - PLATELET COUNT 140 10^3/uL (130-450); RED CELL DISTRIBUTION WIDTH 15.1 % (12.0-15.0)
[2019-08-07 05:03] LABS: ALBUMIN 3.2 g/dL (3.2-5.5); ALBUMIN/GLOBULIN RATIO 0.9 (1.0-2.2); BILIRUBIN,TOTAL 1.3 mg/dL (0.2-1.0); CALCIUM 9.8 mg/dL (8.5-10.3); CREATININE 0.5 mg/dL (0.4-1.0); TOTAL PROTEIN 6.7 g/dL (6.7-8.2)
[2019-08-07] MEDS: PANTOPRAZOLE 40 MG VIAL IVP SCH (06:18)
[2019-08-07] MEDS: SODIUM CHLORIDE 0.9% 1,000 ML IV SCH ×2 (06:24→20:29)
[2019-08-07] MEDS: BENZONATATE 100 MG CAPSULE PO PRN (06:30)
[2019-08-07] MEDS: guaiFENesin 600 MG TABLET PO SCH ×2 (08:22→20:34)
[2019-08-07] MEDS: SACCHAROMYCES BOULARDII 250 MG CAPSULE PO SCH ×2 (08:22→17:50)
[2019-08-07] MEDS: cefTRIAXone 2 GM in SODIUM CHLORIDE 0.9% MINIBAG 100 ML IV SCH (08:22)
[2019-08-07] MEDS: AZITHROMYCIN INJ 500 MG in SODIUM CHLORIDE 0.9% 250 ML IV SCH (09:32)
[2019-08-07] MEDS: POLYETHYLENE GLYCOL 3350 17 GM PACKET PO SCH (09:32)
[2019-08-07] MEDS: ENOXAPARIN 40 MG/0.4 ML SYRINGE SUBQ SCH (09:32)
--- NOTE | 2019-08-07 13:38 | PROVIDER PROGRESS NOTE ---
Assessment/Plan - Problem List (1) Gastritis Assessment/Plan: The abdominal imaging showed no source. She has had this for a week and it is slowly better. Therefore the prsumed probblem is viral syndrome. Continue symptomatic management, iv fluids and antiemetics. (2) Pneumonia Qualifiers: Pneumonia type: due to unspecified organism Laterality: left Lung location: lower lobe of lung Qualified Code(s): J18.1 - Lobar pneumonia, unspecified organism Assessment/Plan: She is still coughing, but is not SOB. O2 still needed. Her exam and appearance are that of a smoker with COPD and bronchoiectasis. Continue with empiric iv antibx Will image the lungs with CXRay to get complete assessment. If the suspision is of an aspiration pneumonia by imaging, will change her antibiotics from Zithro and Ceftriax to Meropenam. Will also add nebs as she likely has COPD from smoking. Continue Mucinex and add Acapella valve for pulmonary toileting. (3) Hypothyroid Assessment/Plan: She could not tolerate prescription meds and took "supplements" (4) Sleep apnea Assessment/Plan: She could not tolerate CPAP, per record (5) Tobacco use Assessment/Plan: Her allergy list sates that Nicotine patch gave her blisters. Her exam and appearance are that of a smoker with COPD. (6) Hypokalemia Assessment/Plan: Resolved - Current Meds Current Meds: Current Medications Generic Name Dose Route Start Last Admin Trade Name Freq PRN Reason Stop Dose Admin Benzonatate 100 mg 08/05/19 18:37 08/07/19 06:30 Tessalon PO 100 mg TID PRN Administration Cough Enoxaparin Sodium 40 mg 08/06/19 09:00 08/07/19 09:32 Lovenox SUBQ Not Given DAILY OWEN Guaifenesin 600 mg 08/05/19 21:00 08/07/19 08:22 Mucinex PO 600 mg BID OWEN Administration Hydromorphone HCl 1 mg 08/05/19 18:36 08/07/19 11:53 Dilaudid Inj Carp IVP 1 mg Q2HR PRN Administration PAIN Ceftriaxone Sodium 2 gm/ 100 mls @ 200 mls/hr 08/06/19 09:00 08/07/19 09:32 Sodium Chloride IV Infused DAILY OWEN Infusion Sodium Chloride 1,000 mls @ 83.333 mls/hr 08/06/19 09:00 08/07/19 06:24 Normal Saline 0.9% IV 83.333 mls/hr .Q12H OWEN Administration Ondansetron HCl 4 mg 08/05/19 18:19 08/07/19 11:53 Zofran Inj IVP 4 mg Q6HR PRN Administration Nausea / Vomiting Pantoprazole Sodium 40 mg 08/05/19 19:00 08/07/19 06:18 Protonix IVP 40 mg QDAC OWEN Administration Polyethylene Glycol 17 gm 08/06/19 09:00 08/07/19 09:32 Miralax PO Not Given DAILY OWEN Prochlorperazine Edisylate 10 mg 08/05/19 18:19 08/07/19 08:20 Compazine Inj IVP 10 mg Q6HR PRN Administration Nausea / Vomiting Saccharomyces Boulardii 250 mg 08/06/19 08:00 08/07/19 08:22 Florastor PO 250 mg BIDWM OWEN Administration Sodium Chloride 10 ml 08/05/19 18:19 08/07/19 02:09 Normal Saline Flush 0.9% IVP 10 ml PRN PRN Administration NEEDED PER PROVIDER ORDERS Sodium Chloride 10 ml 08/06/19 01:00 08/07/19 09:33 Normal Saline Flush 0.9% IVP 10 ml 0100,0900,1700 OWEN Administration - Lab Result Fish Bone Diagrams: 08/07/19 04:37 08/07/19 04:37 Subjective - Subjective Patient Reports: Cough, Nausea Nursing Reports: Other (Only vomited liquids) Objective Vital Signs: Vital Signs - 24 hr 08/06/19 08/06/19 08/07/19 15:35 21:00 00:30 Temperature 36.8 C 36.6 C 36.5 C Heart Rate [ 90 92 84 Brachial] Respiratory 18 16 14 Rate Blood Pressure 130/69 141/61 H 108/61 [Right Radial artery] O2 Saturation 92 94 92 08/07/19 08/07/19 04:34 07:54 Temperature 36.4 C L 36.7 C Heart Rate [ 100 63 Brachial] Respiratory 16 14 Rate Blood Pressure 149/80 H 132/79 H [Right Radial artery] O2 Saturation 92 95 Oxygen O2 Source Nasal cannula I&O (Last 24 Hrs): Intake and Output Totals x24h 08/05/19 08/06/19 08/07/19 23:59 23:59 23:59 Intake Total 2101 4039.441 1401.941 Output Total 200 1700 390 Balance 1901 2339.441 1011.941 General: Alert, Other (Appears weak and lethargic) HEENT: Mucous membr. moist/pink Neck: Supple Neuro: Non Focal Cardiovascular: Regular rate Respiratory: No respiratory distress, Rhonchi Abdomen: Soft, Other (Decreased boweel sounds) Extremities: No edema, Other (Disheveld and dirt on skin of feet) - Results Results: Laboratory Results WBC 6.0 x10^3/uL (4.8-10.8) 08/07/19 04:37 RBC 4.30 10^6/uL (4.20-5.40) 08/07/19 04:37 Hgb 14.4 g/dL (12.0-16.0) 08/07/19 04:37 Hct 46.3 % (37.0-47.0) 08/07/19 04:37 MCV 107.7 fL (81.0-99.0) H 08/07/19 04:37 MCH 33.5 pg (27.0-31.0) H 08/07/19 04:37 MCHC 31.1 g/dL (32.0-36.0) L 08/07/19 04:37 RDW 15.1 % (12.0-15.0) H 08/07/19 04:37 Plt Count 140 10^3/uL (130-450) 08/07/19 04:37 MPV 12.0 fL (7.9-10.8) H 08/07/19 04:37 Neut # (Auto) 3.4 10^3/uL (1.5-6.6) 08/07/19 04:37 Lymph # (Auto) 1.3 10^3/uL (1.5-3.5) L 08/07/19 04:37 [place] # (Auto) 1.1 10^3/uL (0.0-1.0) H 08/07/19 04:37 Eos # (Auto) 0.0 10^3/uL (0.0-0.7) 08/07/19 04:37 Baso # (Auto) 0.1 10^3/uL (0.0-0.1) 08/07/19 04:37 Absolute Nucleated RBC 0.00 x10^3/uL 08/07/19 04:37 Nucleated RBC % 0.0 /100WBC 08/07/19 04:37 Sodium 145 mmol/L (135-145) 08/07/19 04:37 Potassium 3.6 mmol/L (3.5-5.0) 08/07/19 04:37 Chloride 104 mmol/L (101-111) 08/07/19 04:37 Carbon Dioxide 33 mmol/L (21-32) H 08/07/19 04:37 Anion Gap 8.0 (6-13) 08/07/19 04:37 BUN 7 mg/dL (6-20) 08/07/19 04:37 Creatinine 0.5 mg/dL (0.4-1.0) 08/07/19 04:37 Estimated GFR (MDRD) 122 (>89) 08/07/19 04:37 Glucose 143 mg/dL (70-100) H 08/07/19 04:37 Lactic Acid 1.7 mmol/L (0.5-2.2) 08/05/19 18:22 Calcium 9.8 mg/dL (8.5-10.3) 08/07/19 04:37 Magnesium 2.1 mg/dL (1.7-2.8) 08/06/19 05:05 Total Bilirubin 1.3 mg/dL (0.2-1.0) H 08/07/19 04:37 AST 37 IU/L (10-42) 08/07/19 04:37 ALT 21 IU/L (10-60) 08/07/19 04:37 Alkaline Phosphatase 67 IU/L (42-121) 08/07/19 04:37 Troponin I High Sens 9.8 pg/mL (2.3-14.8) 08/06/19 00:45 Total Protein 6.7 g/dL (6.7-8.2) 08/07/19 04:37 Albumin 3.2 g/dL (3.2-5.5) 08/07/19 04:37 Globulin 3.5 g/dL (2.1-4.2) 08/07/19 04:37 Albumin/Globulin Ratio 0.9 (1.0-2.2) L 08/07/19 04:37 Lipase 25 U/L (22-51) 08/05/19 15:54 Vitamin B12 2180 pg/mL (180-914) H 08/06/19 05:05 Folate 13.74 ng/mL (5.90 - >24.8) 08/06/19 05:05 TSH 0.31 uIU/mL (0.34-5.60) L 08/06/19 05:09 Free T4 0.83 ng/dL (0.58-1.64) 08/07/19 04:37 Ethyl Alcohol < 5.0 mg/dL 08/05/19 15:54 Influenza A (Rapid) Negative (Negative) 08/06/19 21:10 Influenza B (Rapid) Negative (Negative) 08/06/19 21:10 Sepsis Event Note (H) - Evaluation Current Stage of Sepsis: Ruled out
[2019-08-07] MEDS: IPRATROPIUM/ALBUTEROL 3 ML NEB INH SCH ×2 (16:00→20:17)
--- NOTE | 2019-08-07 17:34 | XRAY Report ---
Reason: Pneumonia Procedure Date: 08/07/2019 Accession Number: [id number] / [id number] Procedure: XR - Chest 1 View X-Ray CPT Code: 96488 FULL RESULT: EXAM: CHEST RADIOGRAPHY EXAM DATE: 08/07/2019 02:40 PM. CLINICAL HISTORY: Pneumonia. COMPARISON: CHEST 1 VIEW 07/17/2019 12:52 PM ABDOMEN/PELVIS W/ 08/05/2019 4:45 PM. TECHNIQUE: 1 view. FINDINGS: The patient is rotated to the left. Heart size is normal. Patchy opacities in the left lower lobe. Mild diffuse interstitial prominence. No pleural effusions or pneumothoraces visualized. IMPRESSION: Patchy left lower lobe opacities likely representing the pneumonia seen on the recent CT abdomen/pelvis. Mild diffuse interstitial prominence, which may represent changes from chronic pulmonary disease or mild edema. RADIA
[2019-08-08] MEDS: SODIUM CHLORIDE FLUSH 0.9% 10 ML SYRINGE IVP SCH ×3 (00:59→15:39)
[2019-08-08] MEDS: ONDANSETRON 4 MG/2 ML VIAL IVP PRN (01:21)
[2019-08-08] MEDS: HYDROmorphone 1 MG/ML CARPUJECT IVP PRN ×3 (01:21→15:39)
[2019-08-08 05:14] LABS: BASOPHILS % (AUTO) 1.1 %; EOSINOPHILS % (AUTO) 1.1 %; HGB - HEMOGLOBIN 14.5 g/dL (12.0-16.0); LYMPHOCYTES % (AUTO) 18.7 %; MEAN CORPUSCULAR HEMOGLOBIN 33.5 pg (27.0-31.0); MEAN CORPUSCULAR HGB CONC 31.6 g/dL (32.0-36.0); MEAN PLATELET VOLUME 11.9 fL (7.9-10.8); MONOCYTES % (AUTO) 16.1 %; NEUTROPHILS % (AUTO) 57.9 %; PLT - PLATELET COUNT 117 10^3/uL (130-450); RED BLOOD COUNT 4.33 10^6/uL (4.20-5.40); RED CELL DISTRIBUTION WIDTH 14.7 % (12.0-15.0); WHITE BLOOD COUNT 5.5 x10^3/uL (4.8-10.8)
[2019-08-08] MEDS: PROCHLORPERAZINE 10 MG/2 ML VIAL IVP PRN (05:19)
[2019-08-08 05:28] LABS: ABNORMAL LYMPHS % (MANUAL) 0 %; BAND NEUTROPHILS % (MANUAL) 0 %
[2019-08-08 05:30] LABS: ALBUMIN 3.2 g/dL (3.2-5.5); ALBUMIN/GLOBULIN RATIO 0.9 (1.0-2.2); BILIRUBIN,TOTAL 1.5 mg/dL (0.2-1.0); CALCIUM 9.6 mg/dL (8.5-10.3); CREATININE 0.5 mg/dL (0.4-1.0); TOTAL PROTEIN 6.7 g/dL (6.7-8.2)
[2019-08-08 06:15] LABS: EOSINOPHILS # (MANUAL) 0.1 10^3/uL (0-0.7); LYMPHOCYTES # (MANUAL) 1.4 10^3/uL (1.5-3.5); LYMPHOCYTES % (MANUAL) 25 %; MONOCYTES # (MANUAL) 0.8 10^3/uL (0.0-1.0); PLATELET MORPHOLOGY NORMAL APPEARANCE (NORMAL); PROMYELOCYTES % (MANUAL) 1 %; RBC MORPHOLOGY (MULTIPLE) NORMAL APPEARANCE (NORMAL)
[2019-08-08 06:16] LABS: DIFFERENTIAL COMMENT MANUAL DIFFERENTIAL; PLATELET ESTIMATE, MANUAL DECREASED (<130,000) (NORMAL)
[2019-08-08] MEDS: SODIUM CHLORIDE FLUSH 0.9% 10 ML SYRINGE IVP PRN (06:35)
[2019-08-08] MEDS: PANTOPRAZOLE 40 MG VIAL IVP SCH (06:35)
[2019-08-08] MEDS: guaiFENesin 600 MG TABLET PO SCH ×2 (09:33→20:41)
[2019-08-08] MEDS: SACCHAROMYCES BOULARDII 250 MG CAPSULE PO SCH ×2 (09:34→16:57)
[2019-08-08] MEDS: cefTRIAXone 2 GM in SODIUM CHLORIDE 0.9% MINIBAG 100 ML IV SCH (09:34)
[2019-08-08] MEDS: ENOXAPARIN 40 MG/0.4 ML SYRINGE SUBQ SCH (10:19)
[2019-08-08] MEDS: POLYETHYLENE GLYCOL 3350 17 GM PACKET PO SCH (10:20)
[2019-08-08] MEDS: IPRATROPIUM/ALBUTEROL 3 ML NEB INH SCH ×4 (11:28→22:20)
[2019-08-08] MEDS: POTASSIUM CHLOR 10 MEQ/100 ML 10 MEQ/100 ML BAG IV SCH ×3 (11:50→14:22)
--- NOTE | 2019-08-08 15:27 | PROVIDER PROGRESS NOTE ---
Assessment/Plan - Problem List (1) Pneumonia Qualifiers: Pneumonia type: due to unspecified organism Laterality: left Lung location: lower lobe of lung Qualified Code(s): J18.1 - Lobar pneumonia, unspecified organism Assessment/Plan: She has a productive cough, not as frequent as yesterday. She made no sputum for a sample to cx. Blood cx are neg to date. Empiric iv antibiotics continue. (2) Gastritis Assessment/Plan: Vomiting stopped yesterday, no nausea today, so diet advanced (3) Lethargy Assessment/Plan: The patient spends most of the time in a dark room, in bed, is sleeping every time I see her. She only answers me with one word answers. To her RNs, she also communicates minimally. The RN today, thought she likes to only communicate with her , who is at bedside. The reported that the patient has not left her house in 3 years. Will request a mental health eval from . (4) Hypothyroid Assessment/Plan: She is on her home meds. The TSH was low, so T4 was tested and it is low-normal. Continue her present dose. Will check a free T3 also, as she may need [place] thyroid and not Synthroid. (5) Sleep apnea Assessment/Plan: Apparently she does not tolerate a CPAP mask, (6) Tobacco use Assessment/Plan: Nicotine patch ordered. (7) Hypokalemia Assessment/Plan: Replace and follow BMP daily (8) Fall Assessment/Plan: She stood, then crumbled to ground, witnessed, not hitting her head and the Realty Loan Specialist saw her and no Xrays were needed. PT ordered to start. Will check orthostatic VS. - Current Meds Current Meds: Current Medications Generic Name Dose Route Start Last Admin Trade Name Freq PRN Reason Stop Dose Admin Albuterol/Ipratropium 3 ml 08/07/19 15:00 08/08/19 11:28 Duoneb INH 3 ml RTQID OWEN Administration Benzonatate 100 mg 08/05/19 18:37 08/07/19 06:30 Tessalon PO 100 mg TID PRN Administration Cough Enoxaparin Sodium 40 mg 08/06/19 09:00 08/08/19 10:19 Lovenox SUBQ Not Given DAILY OWEN Guaifenesin 600 mg 08/05/19 21:00 08/08/19 09:33 Mucinex PO 600 mg BID OWEN Administration Hydromorphone HCl 1 mg 08/05/19 18:36 08/08/19 05:17 Dilaudid Inj Carp IVP 1 mg Q2HR PRN Administration PAIN Ceftriaxone Sodium 2 gm/ 100 mls @ 200 mls/hr 08/06/19 09:00 08/08/19 10:20 Sodium Chloride IV Infused DAILY OWEN Infusion Ondansetron HCl 4 mg 08/05/19 18:19 08/08/19 01:21 Zofran Inj IVP 4 mg Q6HR PRN Administration Nausea / Vomiting Pantoprazole Sodium 40 mg 08/05/19 19:00 08/08/19 06:35 Protonix IVP 40 mg QDAC OWEN Administration Polyethylene Glycol 17 gm 08/06/19 09:00 08/08/19 10:20 Miralax PO Not Given DAILY OWEN Prochlorperazine Edisylate 10 mg 08/05/19 18:19 08/08/19 05:19 Compazine Inj IVP 10 mg Q6HR PRN Administration Nausea / Vomiting Saccharomyces Boulardii 250 mg 08/06/19 08:00 08/08/19 09:34 Florastor PO 250 mg BIDWM OWEN Administration Sodium Chloride 10 ml 08/05/19 18:19 08/08/19 06:35 Normal Saline Flush 0.9% IVP 10 ml PRN PRN Administration NEEDED PER PROVIDER ORDERS Sodium Chloride 10 ml 08/06/19 01:00 08/08/19 10:20 Normal Saline Flush 0.9% IVP 10 ml 0100,0900,1700 OWEN Administration - Lab Result Fish Bone Diagrams: 08/08/19 04:55 08/08/19 04:55 - Additional Planning My Orders: My Active Orders 08/07/19 14:31 Acapella (Flutter Valve Device [RC] TID 08/07/19 15:00 Ipratropium/Albuterol [Duoneb] 3 ml INH RTQID 08/08/19 Evaluate and Treat OT [OT] Routine Evaluate and Treat PT [PT] Routine 08/08/19 Dinner DIET [Soft (Low Fiber) Diet] [DIET] Subjective - Subjective Nursing Reports: No Complaints, Other (Stay mostly in bed) Objective Vital Signs: Vital Signs - 24 hr 08/07/19 08/07/19 08/07/19 15:40 16:00 20:17 Temperature 36.7 C Heart Rate 92 94 Heart Rate [ 94 Brachial] Respiratory 16 16 18 Rate Blood Pressure 144/76 H [Right Radial artery] O2 Saturation 90 L 08/08/19 08/08/19 08/08/19 01:31 05:15 07:56 Temperature 37.3 C Heart Rate Heart Rate [ 80 72 110 H Brachial] Respiratory 20 18 18 Rate Blood Pressure 138/108 H [Right Radial artery] O2 Saturation 91 L 92 91 L 08/08/19 11:51 Temperature Heart Rate 100 Heart Rate [ Brachial] Respiratory 20 Rate Blood Pressure [Right Radial artery] O2 Saturation Oxygen O2 Source Room air I&O (Last 24 Hrs): Intake and Output Totals x24h 08/06/19 08/07/19 08/08/19 23:59 23:59 23:59 Intake Total 4039.441 2801.941 1245.000 Output Total 1700 790 750 Balance 2339.441 2011.941 495.000 General: Other (Lethargic) HEENT: Mucous membr. moist/pink Neck: Supple Neuro: Non Focal, Other (Minimally communicative) Cardiovascular: No murmurs Respiratory: No respiratory distress, Rhonchi Abdomen: Normal bowel sounds, Soft Extremities: No edema - Results Results: Laboratory Results WBC 5.5 x10^3/uL (4.8-10.8) 08/08/19 04:55 RBC 4.33 10^6/uL (4.20-5.40) 08/08/19 04:55 Hgb 14.5 g/dL (12.0-16.0) 08/08/19 04:55 Hct 45.9 % (37.0-47.0) 08/08/19 04:55 MCV 106.0 fL (81.0-99.0) H 08/08/19 04:55 MCH 33.5 pg (27.0-31.0) H 08/08/19 04:55 MCHC 31.6 g/dL (32.0-36.0) L 08/08/19 04:55 RDW 14.7 % (12.0-15.0) 08/08/19 04:55 Plt Count 117 10^3/uL (130-450) L 08/08/19 04:55 MPV 11.9 fL (7.9-10.8) H 08/08/19 04:55 Neut # (Auto) Not Reportable 08/08/19 04:55 Lymph # (Auto) Not Reportable 08/08/19 04:55 [place]eves # (Auto) Not Reportable 08/08/19 04:55 Eos # (Auto) Not Reportable 08/08/19 04:55 Baso # (Auto) Not Reportable 08/08/19 04:55 Absolute Nucleated RBC Not Reportable 08/08/19 04:55 Total Counted 100 08/08/19 04:55 Band Neuts % (Manual) 0 % (0-10) 08/08/19 04:55 Abnorm Lymph % (Manual) 0 % 08/08/19 04:55 Promyelocytes % 1 % (-0) H 08/08/19 04:55 Nucleated RBC % Not Reportable 08/08/19 04:55 Neutrophils # (Manual) 3.2 10^3/uL (1.5-6.6) 08/08/19 04:55 Lymphocytes # (Manual) 1.4 10^3/uL (1.5-3.5) L 08/08/19 04:55 Monocytes # (Manual) 0.8 10^3/uL (0.0-1.0) 08/08/19 04:55 Eosinophils # (Manual) 0.1 10^3/uL (0-0.7) 08/08/19 04:55 Basophils # (Manual) 0.0 10^3/uL (0-0.1) 08/08/19 04:55 Differential Comment MANUAL DIFFERENTIAL 08/08/19 04:55 WBC Morphology NORMAL APPEARANCE (NORMAL) 08/08/19 04:55 Platelet Estimate DECREASED (<130,000) (NORMAL) 08/08/19 04:55 Platelet Morphology NORMAL APPEARANCE (NORMAL) 08/08/19 04:55 RBC Morph Micro Appear NORMAL APPEARANCE (NORMAL) 08/08/19 04:55 Sodium 143 mmol/L (135-145) 08/08/19 04:55 Potassium 3.2 mmol/L (3.5-5.0) L 08/08/19 04:55 Chloride 99 mmol/L (101-111) L 08/08/19 04:55 Carbon Dioxide 35 mmol/L (21-32) H 08/08/19 04:55 Anion Gap 9.0 (6-13) 08/08/19 04:55 BUN 6 mg/dL (6-20) 08/08/19 04:55 Creatinine 0.5 mg/dL (0.4-1.0) 08/08/19 04:55 Estimated GFR (MDRD) 122 (>89) 08/08/19 04:55 Glucose 135 mg/dL (70-100) H 08/08/19 04:55 Lactic Acid 1.7 mmol/L (0.5-2.2) 08/05/19 18:22 Calcium 9.6 mg/dL (8.5-10.3) 08/08/19 04:55 Magnesium 2.1 mg/dL (1.7-2.8) 08/06/19 05:05 Total Bilirubin 1.5 mg/dL (0.2-1.0) H 08/08/19 04:55 AST 40 IU/L (10-42) 08/08/19 04:55 ALT 25 IU/L (10-60) 08/08/19 04:55 Alkaline Phosphatase 65 IU/L (42-121) 08/08/19 04:55 Troponin I High Sens 9.8 pg/mL (2.3-14.8) 08/06/19 00:45 B-Natriuretic Peptide 202 pg/mL (5-100) H 08/08/19 04:55 Total Protein 6.7 g/dL (6.7-8.2) 08/08/19 04:55 Albumin 3.2 g/dL (3.2-5.5) 08/08/19 04:55 Globulin 3.5 g/dL (2.1-4.2) 08/08/19 04:55 Albumin/Globulin Ratio 0.9 (1.0-2.2) L 08/08/19 04:55 Lipase 25 U/L (22-51) 08/05/19 15:54 Vitamin B12 2180 pg/mL (180-914) H 08/06/19 05:05 Folate 13.74 ng/mL (5.90 - >24.8) 08/06/19 05:05 TSH 0.31 uIU/mL (0.34-5.60) L 08/06/19 05:09 Free T4 0.83 ng/dL (0.58-1.64) 08/07/19 04:37 Ethyl Alcohol < 5.0 mg/dL 08/05/19 15:54 Influenza A (Rapid) Negative (Negative) 08/06/19 21:10 Influenza B (Rapid) Negative (Negative) 08/06/19 21:10 Sepsis Event Note (H) - Evaluation Current Stage of Sepsis: Ruled out
[2019-08-08] MEDS: ZOLPIDEM 5 MG TABLET PO PRN (20:41)
[2019-08-09 06:32] LABS: BASOPHILS # (AUTO) 0.1 10^3/uL (0.0-0.1); BASOPHILS % (AUTO) 0.8 %; EOSINOPHILS # (AUTO) 0.1 10^3/uL (0.0-0.7); EOSINOPHILS % (AUTO) 1.1 %; HGB - HEMOGLOBIN 14.6 g/dL (12.0-16.0); LYMPHOCYTES # (AUTO) 1.3 10^3/uL (1.5-3.5); LYMPHOCYTES % (AUTO) 16.6 %; MEAN CORPUSCULAR HEMOGLOBIN 33.6 pg (27.0-31.0); MEAN CORPUSCULAR VOLUME 105.1 fL (81.0-99.0); MEAN PLATELET VOLUME 11.6 fL (7.9-10.8); MONOCYTES # (AUTO) 1.2 10^3/uL (0.0-1.0); MONOCYTES % (AUTO) 15.4 %; NEUTROPHILS # (AUTO) 4.7 10^3/uL (1.5-6.6); NEUTROPHILS % (AUTO) 62.4 %; PLT - PLATELET COUNT 115 10^3/uL (130-450); RED BLOOD COUNT 4.34 10^6/uL (4.20-5.40); RED CELL DISTRIBUTION WIDTH 14.5 % (12.0-15.0); WHITE BLOOD COUNT 7.5 x10^3/uL (4.8-10.8)
[2019-08-09] MEDS: SODIUM CHLORIDE FLUSH 0.9% 10 ML SYRINGE IVP SCH ×3 (06:41→18:44)
[2019-08-09] MEDS: PANTOPRAZOLE 40 MG VIAL IVP SCH (06:41)
[2019-08-09] MEDS: SODIUM CHLORIDE FLUSH 0.9% 10 ML SYRINGE IVP PRN (06:41)
[2019-08-09 06:49] LABS: ALBUMIN 3.1 g/dL (3.2-5.5); ALBUMIN/GLOBULIN RATIO 0.9 (1.0-2.2); BILIRUBIN,TOTAL 2.3 mg/dL (0.2-1.0); CALCIUM 9.8 mg/dL (8.5-10.3); CREATININE 0.6 mg/dL (0.4-1.0); TOTAL PROTEIN 6.5 g/dL (6.7-8.2)
[2019-08-09] MEDS: SACCHAROMYCES BOULARDII 250 MG CAPSULE PO SCH ×2 (08:16→16:51)
[2019-08-09] MEDS: guaiFENesin 600 MG TABLET PO SCH ×2 (08:16→21:09)
[2019-08-09] MEDS: POLYETHYLENE GLYCOL 3350 17 GM PACKET PO SCH (08:16)
[2019-08-09] MEDS: ENOXAPARIN 40 MG/0.4 ML SYRINGE SUBQ SCH (08:16)
[2019-08-09] MEDS: cefTRIAXone 2 GM in SODIUM CHLORIDE 0.9% MINIBAG 100 ML IV SCH (08:16)
[2019-08-09] MEDS: IPRATROPIUM/ALBUTEROL 3 ML NEB INH SCH ×4 (11:54→20:51)
[2019-08-09] MEDS: D5NS W/20 MEQ KCL 1,000 ML IV SCH (12:01)
[2019-08-09] MEDS: ACETAMINOPHEN 325 MG TABLET PO PRN ×2 (12:01→23:52)
[2019-08-09] MEDS: POTASSIUM CHLOR 10 MEQ/100 ML 10 MEQ/100 ML BAG IV SCH ×2 (12:01→13:35)
--- NOTE | 2019-08-09 12:02 | PROVIDER PROGRESS NOTE ---
Assessment/Plan - Problem List (1) Cholecystitis Assessment/Plan: When I saw her alone and asked her if she is in pain, she said No but with her hands she grabbed her upper abdomen. When the arrived, he reported that she was fidgety all night, could not find a comfortable position, going from bed to dangling to sitting in chair. When he is in the room, she says her abdomen hurts and "when can this get done", by which she means get her gallbadder dealt with. The described that on a prior admission, gallbladder sludge was seen. Bilirubin elevated today. Will request a Gen Surg consult regarding poss acute cholecystitis. I spoke to Dr Antonio Ware. Will change to npo for bowel rest and restart iv fluids, which were weaned down to off over the past 2 days. Will order RUQ US imaging. Will check a Lactic acid level, regarding sepsis. Will change antibiotics to iv Cefepinme and iv Flagyl. (2) Alkalosis Assessment/Plan: The Cougar Hunter reported that she has had 0% of her diet yesterday and today. Her iv fluids have been decreasing for 2 days, due to CXR report of pulmonary vascular congestion. Will rstart fluids at a slow rate, because she is clinically dehydrated. (The excavation laborer could not get blood for the STAT troponin ordered). (3) Pulmonary edema Assessment/Plan: The CXR done for PNA F/U has been showing increasing pulmonary edema, no description of an infiltrate. The empiric Zithro and Ceftriaxone will be stopped. Will obtain a BNP, troponins and EKG. (4) Altered mental status Assessment/Plan: For the first 3 days she slept day and night in a dark room, only answered with grunts. I had ordered a mental health eval for poss depression, which was cancelled due to her increased abdominal pain this a.m. The told me he is usually communicative at home. But he did confirm that she mostly stays inside, he does the shopping and errands but she does go to doctor's appointment. He noticed her sleepiness when she started getting the narcotics for pain. The providers and RNs & CNAs have noticed that she only communicates when the is in the room, and talks to him only. He sleeps here, then goes home briefly during the day. Will stop iv Dilaudid and decrease sedating meds. She does need a mental health eval for possible depression, agoraphobia or other psych disorder, when clinically stable. (5) Hypothyroid Assessment/Plan: He is on her home medications. Her TSH came back low therefore T3 and T4 were checked and these are in the normal range (6) Sleep apnea Assessment/Plan: She reported that she could not tolerate a CPAP (7) Tobacco use Assessment/Plan: Nicotine patch was offered but it is listed as an allergy that gives her skin blisters. Her EKG done today shows a wandering atrial pacemaker, which is common in COPDers. (8) Hypokalemia Assessment/Plan: Replace with iv riders and retsart iv fluids with KCl. Follow BMP daily. (9) Fall Assessment/Plan: Yesterday, she stood up alone at the bedside, then crumbled to ground, witnessed by the and her RN, not hitting her head and the [employer] Specialist saw her and no Xrays were needed. PT has been ordered to start, then cancelled when her labs became abnormal and she had abdominal pain Will check orthostatic VS. (10) Gastritis Assessment/Plan: She had presented with 1 week of laying in bed with nausea & vomiting and the impression was that of viral gastroenteritis No further N/V, but has abdominal pain (see above) (11) Pneumonia Qualifiers: Pneumonia type: due to unspecified organism Laterality: left Lung location: lower lobe of lung Qualified Code(s): J18.1 - Lobar pneumonia, unspecified organism Assessment/Plan: Ruled out - Current Meds Current Meds: Current Medications Generic Name Dose Route Start Last Admin Trade Name Freq PRN Reason Stop Dose Admin Albuterol/Ipratropium 3 ml 08/07/19 15:00 08/09/19 11:54 Duoneb INH 3 ml RTQID OWEN Administration Benzonatate 100 mg 08/05/19 18:37 08/07/19 06:30 Tessalon PO 100 mg TID PRN Administration Cough Enoxaparin Sodium 40 mg 08/06/19 09:00 08/09/19 08:16 Lovenox SUBQ 40 mg DAILY OWEN Administration Guaifenesin 600 mg 08/05/19 21:00 08/09/19 08:16 Mucinex PO 600 mg BID OWEN Administration Ondansetron HCl 4 mg 08/05/19 18:19 08/08/19 01:21 Zofran Inj IVP 4 mg Q6HR PRN Administration Nausea / Vomiting Pantoprazole Sodium 40 mg 08/05/19 19:00 08/09/19 06:41 Protonix IVP 40 mg QDAC OWEN Administration Polyethylene Glycol 17 gm 08/06/19 09:00 08/09/19 08:16 Miralax PO Not Given DAILY OWEN Prochlorperazine Edisylate 10 mg 08/05/19 18:19 08/08/19 05:19 Compazine Inj IVP 10 mg Q6HR PRN Administration Nausea / Vomiting Saccharomyces Boulardii 250 mg 08/06/19 08:00 08/09/19 08:16 Florastor PO 250 mg BIDWM OWEN Administration Sodium Chloride 10 ml 08/05/19 18:19 08/09/19 06:41 Normal Saline Flush 0.9% IVP 10 ml PRN PRN Administration NEEDED PER PROVIDER ORDERS Sodium Chloride 10 ml 08/06/19 01:00 08/09/19 08:17 Normal Saline Flush 0.9% IVP 10 ml 0100,0900,1700 OWEN Administration Zolpidem Tartrate 5 mg 08/05/19 18:19 08/08/19 20:41 Ambien PO 5 mg QPM PRN Administration Insomnia - Lab Result Fish Bone Diagrams: 08/09/19 06:20 08/09/19 06:20 - EKG Results EKG Interpreted Independently: Yes EKG Findings: `Wandering atrial pacemaker (3 different P wave morphologies), PVCs, late R wave progression. - Additional Planning My Orders: My Active Orders 08/08/19 19:34 Miscellaenous Nursing Order [RC] QSHIFT 08/09/19 Consult [General Surgery Consult] [CONS] Routine 08/09/19 09:00 Social Work Consult [CONS] Routine 08/09/19 11:08 1:1 Observation [RC] once Chest 1 View X-Ray [XR] Stat 08/09/19 11:50 Abdomen Limited [US] Stat 08/09/19 11:58 DIET [NPO except Meds] [DIET] 08/09/19 12:00 D5.9NS W/20 MEQ KCL @ 83.333 mls/hr D5ns W/20 Meq KCl 1,000 ml IV 83.333 mls/hr Potassium Chloride/Water 10 mEq/100 mL q1h Potassium Chlor 10 Meq/100 ml [Potassium Chloride] 10 meq in 100 ml IV Q1H metroNIDAZOLE/NS 500 mg/100 mL Q8H metroNIDAZOLE 500 MG/100 ML [Flagyl 500 mg/100 ml] 500 mg in 100 ml IV Q8H 08/09/19 13:00 Cefepime 1 gm Sodium Chloride 0.9% Minibag [Normal Saline 0.9% Minibag] 100 ml IV TID 08/10/19 05:00 CMP [COMPREHENSIVE METABOLIC PANEL] [CHEM] DAILYLAB Subjective - Subjective Patient Reports: No Complaints, Abdominal Pain, Back Pain, Other (I visited this patient 3 times today, the first time she was sitting up in a chair and had no complaints, only her nurse was there and she was not communicating with us. The second time her was there and she was fidgeting and complaining of abdominal pain. Later in the day at my third visit she was smiling and wanted to go for a walk using a walker.) Objective Vital Signs: Vital Signs - 24 hr 08/08/19 08/08/19 08/08/19 17:19 17:23 21:20 Temperature 36.7 C 36.7 C Heart Rate 99 98 Heart Rate [ 99 Brachial] Respiratory 20 20 20 Rate Blood Pressure 164/66 H [Right Radial artery] O2 Saturation 91 L 94 08/09/19 08/09/19 08/09/19 04:13 05:01 08:53 Temperature 36.6 C 36.8 C Heart Rate Heart Rate [ 114 H 100 11 L Brachial] Respiratory 22 20 22 Rate Blood Pressure 110/90 H 145/117 H [Right Radial artery] O2 Saturation 90 L 92 87 L Oxygen O2 Source Nasal cannula I&O (Last 24 Hrs): Intake and Output Totals x24h 08/07/19 08/08/19 08/09/19 23:59 23:59 23:59 Intake Total 2801.941 1345.000 100 Output Total 790 1200 1340 Balance 2011.941 145.000 -1240 General: Mild distress HEENT: Mucous membr. moist/pink, Other (Wearing O2 per nasal cannula) Neck: Supple Neuro: Other (Minimally communicative, grossly normal motor exam, I am unable to assess if she is oriented since she does not answer me) Cardiovascular: Regular rate Respiratory: No respiratory distress Abdomen: Soft, Other (No guarding or rebound, Obese with pannus) Extremities: No edema - Results Results: Laboratory Results WBC 7.5 x10^3/uL (4.8-10.8) 08/09/19 06:20 RBC 4.34 10^6/uL (4.20-5.40) 08/09/19 06:20 Hgb 14.6 g/dL (12.0-16.0) 08/09/19 06:20 Hct 45.6 % (37.0-47.0) 08/09/19 06:20 MCV 105.1 fL (81.0-99.0) H 08/09/19 06:20 MCH 33.6 pg (27.0-31.0) H 08/09/19 06:20 MCHC 32.0 g/dL (32.0-36.0) 08/09/19 06:20 RDW 14.5 % (12.0-15.0) 08/09/19 06:20 Plt Count 115 10^3/uL (130-450) L 08/09/19 06:20 MPV 11.6 fL (7.9-10.8) H 08/09/19 06:20 Neut # (Auto) 4.7 10^3/uL (1.5-6.6) 08/09/19 06:20 Lymph # (Auto) 1.3 10^3/uL (1.5-3.5) L 08/09/19 06:20 [place] # (Auto) 1.2 10^3/uL (0.0-1.0) H 08/09/19 06:20 Eos # (Auto) 0.1 10^3/uL (0.0-0.7) 08/09/19 06:20 Baso # (Auto) 0.1 10^3/uL (0.0-0.1) 08/09/19 06:20 Absolute Nucleated RBC 0.00 x10^3/uL 08/09/19 06:20 Total Counted 100 08/08/19 04:55 Band Neuts % (Manual) 0 % (0-10) 08/08/19 04:55 Abnorm Lymph % (Manual) 0 % 08/08/19 04:55 Promyelocytes % 1 % (-0) H 08/08/19 04:55 Nucleated RBC % 0.0 /100WBC 08/09/19 06:20 Neutrophils # (Manual) 3.2 10^3/uL (1.5-6.6) 08/08/19 04:55 Lymphocytes # (Manual) 1.4 10^3/uL (1.5-3.5) L 08/08/19 04:55 Monocytes # (Manual) 0.8 10^3/uL (0.0-1.0) 08/08/19 04:55 Eosinophils # (Manual) 0.1 10^3/uL (0-0.7) 08/08/19 04:55 Basophils # (Manual) 0.0 10^3/uL (0-0.1) 08/08/19 04:55 Differential Comment MANUAL DIFFERENTIAL 08/08/19 04:55 WBC Morphology NORMAL APPEARANCE (NORMAL) 08/08/19 04:55 Platelet Estimate DECREASED (<130,000) (NORMAL) 08/08/19 04:55 Platelet Morphology NORMAL APPEARANCE (NORMAL) 08/08/19 04:55 RBC Morph Micro Appear NORMAL APPEARANCE (NORMAL) 08/08/19 04:55 Sodium 143 mmol/L (135-145) 08/09/19 06:20 Potassium 3.1 mmol/L (3.5-5.0) L 08/09/19 06:20 Chloride 92 mmol/L (101-111) L 08/09/19 06:20 Carbon Dioxide 41 mmol/L (21-32) H* 08/09/19 06:20 Anion Gap 10.0 (6-13) 08/09/19 06:20 BUN 6 mg/dL (6-20) 08/09/19 06:20 Creatinine 0.6 mg/dL (0.4-1.0) 08/09/19 06:20 Estimated GFR (MDRD) 99 (>89) 08/09/19 06:20 Glucose 124 mg/dL (70-100) H 08/09/19 06:20 Lactic Acid 2.6 mmol/L (0.5-2.2) H 08/09/19 11:40 Calcium 9.8 mg/dL (8.5-10.3) 08/09/19 06:20 Magnesium 2.1 mg/dL (1.7-2.8) 08/06/19 05:05 Total Bilirubin 2.3 mg/dL (0.2-1.0) H 08/09/19 06:20 AST 47 IU/L (10-42) H 08/09/19 06:20 ALT 28 IU/L (10-60) 08/09/19 06:20 Alkaline Phosphatase 59 IU/L (42-121) 08/09/19 06:20 Troponin I High Sens 9.8 pg/mL (2.3-14.8) 08/06/19 00:45 B-Natriuretic Peptide 202 pg/mL (5-100) H 08/08/19 04:55 Total Protein 6.5 g/dL (6.7-8.2) L 08/09/19 06:20 Albumin 3.1 g/dL (3.2-5.5) L 08/09/19 06:20 Globulin 3.4 g/dL (2.1-4.2) 08/09/19 06:20 Albumin/Globulin Ratio 0.9 (1.0-2.2) L 08/09/19 06:20 Lipase 25 U/L (22-51) 08/05/19 15:54 Vitamin B12 2180 pg/mL (180-914) H 08/06/19 05:05 Folate 13.74 ng/mL (5.90 - >24.8) 08/06/19 05:05 TSH 0.31 uIU/mL (0.34-5.60) L 08/06/19 05:09 Free T4 0.83 ng/dL (0.58-1.64) 08/07/19 04:37 Free T3 pg/mL 2.56 pg/mL (2.5-3.9) 08/09/19 06:20 Ethyl Alcohol < 5.0 mg/dL 08/05/19 15:54 Influenza A (Rapid) Negative (Negative) 08/06/19 21:10 Influenza B (Rapid) Negative (Negative) 08/06/19 21:10 Sepsis Event Note (H) - Evaluation Current Stage of Sepsis: Ruled out
--- NOTE | 2019-08-09 12:13 | XRAY Report ---
Reason: F/U [place] Procedure Date: 08/09/2019 Accession Number: [id number] / [id number] Procedure: XR - Chest 1 View X-Ray CPT Code: 86398 FULL RESULT: EXAM: CHEST RADIOGRAPHY EXAM DATE: 08/09/2019 11:31 AM. CLINICAL HISTORY: Follow up pneumonia. COMPARISON: CHEST 1 VIEW 08/07/2019 2:27 PM. TECHNIQUE: 1 view. FINDINGS: Lungs/Pleura: Interval worsening of alveolar and interstitial opacification with interseptal markings seen. Findings are compatible with worsening pulmonary edema. Mediastinum: Within exam limitations, the cardiomediastinal contour is normal. Other: None. IMPRESSION: Findings compatible with worsening pulmonary edema. RADIA
[2019-08-09] MEDS: CEFEPIME 1 GM in SODIUM CHLORIDE 0.9% MINIBAG 100 ML IV SCH ×3 (13:36→22:30)
[2019-08-09] MEDS: metroNIDAZOLE 500 MG/100 ML 500 MG/100 ML BAG IV SCH ×2 (14:16→21:09)
--- NOTE | 2019-08-09 14:45 | CONSULTATION NOTE ---
Referring Provider Name of Referring Provider:: Dr. Cruz Consult Date: 08/09/19 Chief Complaint - Chief Complaint Chief Complaint: N/V/D/abd pain History of Present Illness - Admitted From Admitted From:: ER - History Obtained From Records Reviewed: yes History obtained from: pt, Exam Limitations: pt is extremely poor historian, almost nonverbal - History of Present Illness HPI Comment/Other: 73 yo female admitted 4 days ago with hx of several weeks of N/V/D together with cough, dyspnea, chest, epigastric and back pain. Sx are intermittent but worsening. Pt was seen in the ER on 07/17/19 where a chest x ray showed possible pneumonitis and US showed small stones and sludge in gallbladder but no signs of acute cholecystitis or biliary ductal dilatation. LFTs were notable for a bili of 2.1, AST mildly elevated, ow nl; lipase nl. She was treated as an outpatient with antibiotics but returned to the ER 4 days ago with persistent, worsening sx and was admitted. CT abd/pelvis on 08/05 was notable for LLL pneumonia, cholelithiasis, CBD 10 mm, and changes in the liver possibly due to cirrhosis. LFT's have remain unchanged on admission and since except for slight increase in Bili to 2.4. She has been treated for pneumonitis since admission. She is minimally communicative, with her providing the history. Since admission she has been having intermittent episodes of upper abdominal and back pain per . One episode of vomiting has been noted several days ago, and no diarrhea since admit. She currently is awake, smiling, and denying any abdominal pain or nausea. No hx hepatitis or jaundice, recent wt loss, or hx of alcoho lism. A repeat abd US has been ordered for today, but has not been performed as of the time of this report. A CXR obtained today showed findings c/w pulmonary edema. There is no hx of fatty food intolerance. History - Past Medical History Cardiovascular: reports: Murmur Respiratory: reports: Sleep apnea Endocrine/Autoimmune: reports: HyPOthyroidism GI: reports: GERD HEENT: reports: Chronic vision loss Musculoskeletal: reports: Fibromyalgia MRSA Hx?: No - Past Surgical History Other past surgical history: Dental excision of extensive torus palatinus, which required full dental extraction in [address] Shannon in [place] - Family & Social History Family History: Mother: (polio), Father: Cancer (unspecified) Family History Comment/Other: paternal aunt and cousin: breast cancer Living arrangement: At home Living Situation: With family Social History Notes: She smoked for over 50 years but quit about 3 years ago. She denies alcohol use. She uses edible marijuana products - Substance History Use: Uses substance without health or social issues: Cannabis - POLST Patient has POLST: No POLST Status: Full Code Meds/Allgy - Home Medications Home Medications: Ambulatory Orders Medication Instructions Recorded Confirmed No Known Home Medications 08/07/19 08/07/19 - Allergies Allergies/Adverse Reactions: Allergies Allergy/AdvReac Type Severity Reaction Status Date / Time nicotine [From Nicoderm CQ] Allergy Intermediate Skin Verified 08/05/19 15:18 Blisters levothyroxine sodium Allergy Unknown Unknown Verified 08/05/19 15:18 Review of Systems - All Other Systems All Other Systems: reports: Other (pt minimally communicative; unable to obtain) Exam - Vital Signs Reviewed Vital Signs: Yes Vital Signs: Vital Signs x48h Temp Pulse Pulse Resp BP Pulse Ox 08/09/19 13:41 37 C 108 H 20 146/74 H 93 08/09/19 11:54 100 20 08/09/19 08:53 36.8 C 11 L 22 145/117 H 87 L - Physical Exam General Appearance: positive: No acute distress Eyes Bilateral: positive: Normal inspection, No scleral icterus ENT: positive: ENT inspection nml Neck: positive: Nml inspection, No JVD. negative: Lymphadenopathy (R), Lymphadenopathy (L) Respiratory: positive: Chest non-tender, No respiratory distress, Wheezes (expiratory left base; decreased breath sounds left base) Cardiovascular: positive: Regular rate & rhythm, No murmur, No gallop Abdomen: positive: Non-tender, Other (marked truncal obesity). negative: Guarding, Rebound, Hepatomegaly, Splenomegaly, Mass Back: positive: Nml inspection. negative: CVA tenderness (R), CVA tenderness (L) Skin: positive: Color nml, Warm, Dry Extremities: positive: Pedal edema (2+ ankle edema). negative: Calf tenderness Conclusion/Plan - Diagnosis Diagnosis: 1. Episodic upper abd pain associated with abn lfts and recent US showing cholelithiasis; s/s c/w biliary colic +/- choledocholithiasis. No clinical evidence of acute cholecystitis or cholangitis at present. Also possible would be IBS, hepatocellular disease, and asympt cholelithiasis. 2. pneumonitis, being treated. 3. Pulmonary edema, etiology unclear - Plan Plan: Agree with repeat abd US. Would also consider an echocardiogram if one hasn't been performed recently. Pt would seem to be at high risk for surgery at present and if acute cholecystitis is suspected, would recommend percutaneous drainage with elective surgery after cardiopulmonary status has been further evaluated and optimized. Consider ERCP if choledocholithiasis is suspected. Discussed with Dr. Cruz. Will follow. Thanks, - Lab Results Lab results reviewed: Yes Fish Bones: 08/09/19 06:20 08/09/19 06:20 - Diagnostic Imaging Results Diagnostic Imaging Results: positive: Final report reviewed, Read independently Diagnostic Imaging Results Comments: See HPI
--- NOTE | 2019-08-09 16:32 | Ultrasound Report ---
Reason: RUQ pain and increased bili Procedure Date: 08/09/2019 Accession Number: [id number] / [id number] Procedure: US - Abdomen Limited CPT Code: FULL RESULT: EXAM: ABDOMEN LIMITED EXAM DATE: 08/09/2019 04:01 PM INDICATION: Right upper quadrant pain and increased bilirubin. COMPARISONS: ABDOMEN LIMITED 07/17/2019 4:05 PM. TECHNIQUE: Real-time scanning was performed with static images obtained. FINDINGS: Liver: Liver parenchyma is heterogeneous and moderately hyperechoic. No discrete liver masses or intrahepatic bile duct dilation. However, evaluation for masses is limited secondary to the echogenicity. Multiple stable liver cysts identified. Right liver measures 18 cm. Main portal vein flow: Hepatopetal. Gallbladder: Sludge and gallstones are present. No gallbladder wall thickening or pericholecystic fluid. Negative sonographic Malcolm's sign. Biliary System: CBD measures up to 9 mm. No intrahepatic or extrahepatic ductal dilatation. Pancreas: Limited visualization. Right kidney: Not imaged. Abdominal aorta and IVC: Not specifically imaged. Other: Study limited by patient tolerance and cough. IMPRESSION: 1. Moderately echogenic enlarged liver. No mass. 2. Gallstones and sludge. No sonographic findings concerning for acute cholecystitis. Common bile duct measures up to 9 mm. No intrahepatic bile duct dilation. No common bile duct stone. 3. Study limited by body habitus, bowel gas and cough. RADIA
[2019-08-09] MEDS: BENZONATATE 100 MG CAPSULE PO PRN ×2 (19:23→23:53)
[2019-08-09] MEDS: ZOLPIDEM 5 MG TABLET PO PRN (23:53)
[2019-08-10] MEDS: SODIUM CHLORIDE FLUSH 0.9% 10 ML SYRINGE IVP SCH ×3 (00:15→17:40)
[2019-08-10] MEDS: guaiFENesin/CODEINE 5 ML UDC PO PRN (00:59)
[2019-08-10] MEDS: D5NS W/20 MEQ KCL 1,000 ML IV SCH (02:48)
[2019-08-10] MEDS: metroNIDAZOLE 500 MG/100 ML 500 MG/100 ML BAG IV SCH ×3 (04:14→20:51)
[2019-08-10] MEDS: CEFEPIME 1 GM in SODIUM CHLORIDE 0.9% MINIBAG 100 ML IV SCH ×3 (05:24→22:33)
[2019-08-10 05:49] LABS: ALBUMIN 2.9 g/dL (3.2-5.5); CALCIUM 9.6 mg/dL (8.5-10.3); CREATININE 0.5 mg/dL (0.4-1.0); TOTAL PROTEIN 5.8 g/dL (6.7-8.2)
[2019-08-10] MEDS: IPRATROPIUM/ALBUTEROL 3 ML NEB INH SCH ×4 (06:21→21:39)
[2019-08-10] MEDS: SODIUM CHLORIDE FLUSH 0.9% 10 ML SYRINGE IVP PRN (06:54)
[2019-08-10] MEDS: PANTOPRAZOLE 40 MG VIAL IVP SCH (06:54)
[2019-08-10] MEDS: POLYETHYLENE GLYCOL 3350 17 GM PACKET PO SCH (08:53)
[2019-08-10] MEDS: SACCHAROMYCES BOULARDII 250 MG CAPSULE PO SCH ×2 (08:56→16:38)
[2019-08-10] MEDS: ENOXAPARIN 40 MG/0.4 ML SYRINGE SUBQ SCH (09:02)
[2019-08-10] MEDS ORDERED: VANCOMYCIN PER PHARMACY 1 GM in SODIUM CHLORIDE 0.9% 250 ML IV SCH (10:00)
[2019-08-10] MEDS ORDERED: FUROSEMIDE 20 MG/2 ML VIAL IVP ONE (10:00)
[2019-08-10 10:21] LABS: BASOPHILS # (AUTO) 0.1 10^3/uL (0.0-0.1); EOSINOPHILS # (AUTO) 0.2 10^3/uL (0.0-0.7); EOSINOPHILS % (AUTO) 2.4 %; HGB - HEMOGLOBIN 14.9 g/dL (12.0-16.0); LYMPHOCYTES # (AUTO) 1.4 10^3/uL (1.5-3.5); LYMPHOCYTES % (AUTO) 21.1 %; MEAN CORPUSCULAR HEMOGLOBIN 33.3 pg (27.0-31.0); MEAN CORPUSCULAR HGB CONC 31.8 g/dL (32.0-36.0); MEAN CORPUSCULAR VOLUME 104.9 fL (81.0-99.0); MEAN PLATELET VOLUME 11.3 fL (7.9-10.8); MONOCYTES # (AUTO) 0.8 10^3/uL (0.0-1.0); MONOCYTES % (AUTO) 12.4 %; NEUTROPHILS # (AUTO) 4.1 10^3/uL (1.5-6.6); NEUTROPHILS % (AUTO) 60.2 %; PLT - PLATELET COUNT 118 10^3/uL (130-450); RED BLOOD COUNT 4.47 10^6/uL (4.20-5.40); WHITE BLOOD COUNT 6.8 x10^3/uL (4.8-10.8)
[2019-08-10] MEDS: POTASSIUM CHLOR 10 MEQ/100 ML 10 MEQ/100 ML BAG IV SCH ×4 (10:41→18:42)
[2019-08-10] MEDS ORDERED: VANCOMYCIN INJ 2 GM in SODIUM CHLORIDE 0.9% 500 ML IV ONE (11:00)
[2019-08-10] MEDS ORDERED: POTASSIUM CHLORIDE 20 MEQ TABLET PO ONE (12:00)
--- NOTE | 2019-08-10 12:09 | PROVIDER PROGRESS NOTE ---
Assessment/Plan - Problem List (1) Pneumonia Qualifiers: Pneumonia type: due to unspecified organism Laterality: left Lung location: lower lobe of lung Qualified Code(s): J18.1 - Lobar pneumonia, unspecified organism Assessment/Plan: pt still need 4 liter to remain 92-93% sats now, it is likely from pt's pulmonary edema from her image study. pt's WBC is normal and no fever or chill. continue antibiotics at hospital now, D/C IVF and with lower dosage of lasix incentive spirometer 2) Cholecystitis pt denies N/V and abdominal pain. pt's abdomen is soft and good bowel sound. US of abdomen reveals no common bile stone or no acute cholecystitis. discussed with Dr. Ware for care plan: resume pt's diet, as tolerate to low fat diet, followup Dr. Ware as out-pt. (3) Pulmonary edema Assessment/Plan: ECHO is still pending image studied reveals pulmonary edema add Lasix, and stop IVF (4) Altered mental status resolved. pt is active to have logical conversation with me and nurse (5) Hypothyroid Assessment/Plan: continue home meds, stable. Her TSH came back low therefore T3 and T4 were checked and these are in the normal range (6) Sleep apnea Assessment/Plan: She reported that she could not tolerate a CPAP (7) Tobacco use Assessment/Plan: Nicotine patch was offered but it is listed as an allergy that gives her skin blisters. Her EKG done today shows a wandering atrial pacemaker, which is common in COPDers. (8) Hypokalemia Assessment/Plan: today pt's K is 2.9, continue replacement Follow BMP daily. (9) Fall Assessment/Plan: fall precaution order PT/OT negative for orthostatic VS. (10) Gastritis Assessment/Plan: improved, No further N/V, no abdominal pain resume diet, advance as tolerated - Current Meds Current Meds: Current Medications Generic Name Dose Route Start Last Admin Trade Name Freq PRN Reason Stop Dose Admin Acetaminophen 650 mg 08/05/19 18:19 08/09/19 23:52 Tylenol PO 650 mg Q4HR PRN Administration Pain 1 to 4 Albuterol/Ipratropium 3 ml 08/07/19 15:00 08/10/19 10:50 Duoneb INH 3 ml RTQID OWEN Administration Benzonatate 100 mg 08/05/19 18:37 08/09/19 23:53 Tessalon PO 100 mg TID PRN Administration Cough Enoxaparin Sodium 40 mg 08/06/19 09:00 08/10/19 09:02 Lovenox SUBQ 40 mg DAILY OWEN Administration Guaifenesin/Codeine Phosphate 5 ml 08/10/19 00:29 08/10/19 00:59 Robitussin Ac PO 5 ml Q6HR PRN Administration Cough Cefepime HCl 1 gm/ Sodium 100 mls @ 200 mls/hr 08/09/19 13:00 08/10/19 05:55 Chloride IV Infused TID OWEN Infusion Metronidazole 500 mg in 100 mls @ 100 mls/hr 08/09/19 13:00 08/10/19 05:15 Flagyl 500 Mg/100 Ml IV Infused Q8H OWEN Infusion Potassium Chloride 10 meq in 100 mls @ 25 mls/hr 08/10/19 10:00 08/10/19 10:41 Potassium Chloride IV 08/10/19 13:59 25 mls/hr Q1H OWEN Administration Ondansetron HCl 4 mg 08/05/19 18:19 08/08/19 01:21 Zofran Inj IVP 4 mg Q6HR PRN Administration Nausea / Vomiting Pantoprazole Sodium 40 mg 08/05/19 19:00 08/10/19 06:54 Protonix IVP 40 mg QDAC OWEN Administration Polyethylene Glycol 17 gm 08/06/19 09:00 08/10/19 08:53 Miralax PO Not Given DAILY [facility] Prochlorperazine Edisylate 10 mg 08/05/19 18:19 08/08/19 05:19 Compazine Inj IVP 10 mg Q6HR PRN Administration Nausea / Vomiting Saccharomyces Boulardii 250 mg 08/06/19 08:00 08/10/19 08:56 Florastor PO 250 mg BIDWM OWEN Administration Sodium Chloride 10 ml 08/05/19 18:19 08/10/19 06:54 Normal Saline Flush 0.9% IVP 10 ml PRN PRN Administration NEEDED PER PROVIDER ORDERS Sodium Chloride 10 ml 08/06/19 01:00 08/10/19 08:53 Normal Saline Flush 0.9% IVP Not Given 0100,0900,1700 OWEN Zolpidem Tartrate 5 mg 08/05/19 18:19 08/09/19 23:53 Ambien PO 5 mg QPM PRN Administration Insomnia - Lab Result Fish Bone Diagrams: 08/10/19 10:04 08/10/19 05:19 - Additional Planning My Orders: My Active Orders 08/10/19 Evaluate and Treat OT [OT] Routine Evaluate and Treat PT [PT] Routine 08/10/19 09:21 Chest 1 View X-Ray [XR] Stat 08/10/19 09:27 Incentive Spirometry - RT [RC] .TID 08/10/19 10:00 Potassium Chlor 10 Meq/100 ml [Potassium Chloride] 10 meq in 100 ml IV Q1H 08/10/19 Breakfast Full Liquid Diet [DIET] 08/11/19 05:00 CBC - COMP BLD CT W/AUTO DIFF [HEME] DAILYLAB CMP [COMPREHENSIVE METABOLIC PANEL] [CHEM] DAILYLAB 08/12/19 05:00 CBC - COMP BLD CT W/AUTO DIFF [HEME] DAILYLAB CMP [COMPREHENSIVE METABOLIC PANEL] [CHEM] DAILYLAB 08/13/19 05:00 CBC - COMP BLD CT W/AUTO DIFF [HEME] DAILYLAB CMP [COMPREHENSIVE METABOLIC PANEL] [CHEM] DAILYLAB 08/14/19 05:00 CBC - COMP BLD CT W/AUTO DIFF [HEME] DAILYLAB CMP [COMPREHENSIVE METABOLIC PANEL] [CHEM] DAILYLAB Subjective - Subjective Patient Reports: Feeling Better Objective Vital Signs: Vital Signs - 24 hr 08/09/19 08/09/19 08/09/19 13:41 15:57 16:30 Temperature 37 C 36.7 C Heart Rate 96 Heart Rate [ 108 H 98 Brachial] Heart Rate [ Sitting (After 1 Minute)] Heart Rate [ Standing (After 1 Minute)] Heart Rate [ Supine] Respiratory 20 18 18 Rate Blood Pressure 120/81 H [Left Radial artery] Blood Pressure 146/74 H [Right Radial artery] Blood Pressure [Sitting (After 1 Minute)] Blood Pressure [Standing ( After 1 Minute) ] Blood Pressure [Supine] O2 Saturation 93 94 08/09/19 08/09/19 08/09/19 18:44 20:51 23:04 Temperature 37.0 C Heart Rate 108 H Heart Rate [ 102 H Brachial] Heart Rate [ 109 H Sitting (After 1 Minute)] Heart Rate [ 111 H Standing (After 1 Minute)] Heart Rate [ 105 H Supine] Respiratory 20 18 Rate Blood Pressure 151/85 H [Left Radial artery] Blood Pressure [Right Radial artery] Blood Pressure 187/107 H [Sitting (After 1 Minute)] Blood Pressure 167/108 H [Standing ( After 1 Minute) ] Blood Pressure 141/99 H [Supine] O2 Saturation 92 08/10/19 08/10/19 08/10/19 06:00 06:23 08:20 Temperature 36.9 C 36.4 C L Heart Rate 68 Heart Rate [ 86 99 Brachial] Heart Rate [ Sitting (After 1 Minute)] Heart Rate [ Standing (After 1 Minute)] Heart Rate [ Supine] Respiratory 24 16 20 Rate Blood Pressure 112/63 149/95 H [Left Radial artery] Blood Pressure [Right Radial artery] Blood Pressure [Sitting (After 1 Minute)] Blood Pressure [Standing ( After 1 Minute) ] Blood Pressure [Supine] O2 Saturation 92 92 08/10/19 08/10/19 09:00 10:50 Temperature Heart Rate 102 H Heart Rate [ Brachial] Heart Rate [ 93 Sitting (After 1 Minute)] Heart Rate [ 85 Standing (After 1 Minute)] Heart Rate [ 96 Supine] Respiratory 24 Rate Blood Pressure [Left Radial artery] Blood Pressure [Right Radial artery] Blood Pressure 174/74 H [Sitting (After 1 Minute)] Blood Pressure 167/148 H [Standing ( After 1 Minute) ] Blood Pressure 158/82 H [Supine] O2 Saturation Oxygen O2 Source Nasal cannula I&O (Last 24 Hrs): Intake and Output Totals x24h 08/08/19 08/09/19 08/10/19 23:59 23:59 23:59 Intake Total 8554.856 2779.275 1076.389 Output Total 1200 2265 625 Balance 145.000 -774.725 451.389 General: Alert, No acute distress HEENT: Atraumatic Neck: Supple Lymphatic: no adenopathy Neuro: Alert, Oriented Times 3 Cardiovascular: Regular rate Respiratory: Chest non-tender, No respiratory distress, Breath sounds nml Abdomen: Normal bowel sounds, Soft Extremities: No clubbing - Results Results: Laboratory Results WBC 6.8 x10^3/uL (4.8-10.8) 08/10/19 10:04 RBC 4.47 10^6/uL (4.20-5.40) 08/10/19 10:04 Hgb 14.9 g/dL (12.0-16.0) 08/10/19 10:04 Hct 46.9 % (37.0-47.0) 08/10/19 10:04 MCV 104.9 fL (81.0-99.0) H 08/10/19 10:04 MCH 33.3 pg (27.0-31.0) H 08/10/19 10:04 MCHC 31.8 g/dL (32.0-36.0) L 08/10/19 10:04 RDW 15.0 % (12.0-15.0) 08/10/19 10:04 Plt Count 118 10^3/uL (130-450) L 08/10/19 10:04 MPV 11.3 fL (7.9-10.8) H 08/10/19 10:04 Neut # (Auto) 4.1 10^3/uL (1.5-6.6) 08/10/19 10:04 Lymph # (Auto) 1.4 10^3/uL (1.5-3.5) L 08/10/19 10:04 [place] # (Auto) 0.8 10^3/uL (0.0-1.0) 08/10/19 10:04 Eos # (Auto) 0.2 10^3/uL (0.0-0.7) 08/10/19 10:04 Baso # (Auto) 0.1 10^3/uL (0.0-0.1) 08/10/19 10:04 Absolute Nucleated RBC 0.00 x10^3/uL 08/10/19 10:04 Total Counted 100 08/08/19 04:55 Band Neuts % (Manual) 0 % (0-10) 08/08/19 04:55 Abnorm Lymph % (Manual) 0 % 08/08/19 04:55 Promyelocytes % 1 % (-0) H 08/08/19 04:55 Nucleated RBC % 0.0 /100WBC 08/10/19 10:04 Neutrophils # (Manual) 3.2 10^3/uL (1.5-6.6) 08/08/19 04:55 Lymphocytes # (Manual) 1.4 10^3/uL (1.5-3.5) L 08/08/19 04:55 Monocytes # (Manual) 0.8 10^3/uL (0.0-1.0) 08/08/19 04:55 Eosinophils # (Manual) 0.1 10^3/uL (0-0.7) 08/08/19 04:55 Basophils # (Manual) 0.0 10^3/uL (0-0.1) 08/08/19 04:55 Differential Comment MANUAL DIFFERENTIAL 08/08/19 04:55 Manual Slide Review Cancelled 08/10/19 08:04 WBC Morphology NORMAL APPEARANCE (NORMAL) 08/08/19 04:55 Platelet Estimate DECREASED (<130,000) (NORMAL) 08/08/19 04:55 Platelet Morphology NORMAL APPEARANCE (NORMAL) 08/08/19 04:55 RBC Morph Micro Appear NORMAL APPEARANCE (NORMAL) 08/08/19 04:55 Sodium 145 mmol/L (135-145) 08/10/19 05:19 Potassium 2.9 mmol/L (3.5-5.0) L 08/10/19 05:19 Chloride 97 mmol/L (101-111) L 08/10/19 05:19 Carbon Dioxide 41 mmol/L (21-32) H* 08/10/19 05:19 Anion Gap 7.0 (6-13) 08/10/19 05:19 BUN 8 mg/dL (6-20) 08/10/19 05:19 Creatinine 0.5 mg/dL (0.4-1.0) 08/10/19 05:19 Estimated GFR (MDRD) 122 (>89) 08/10/19 05:19 Glucose 127 mg/dL (70-100) H 08/10/19 05:19 Lactic Acid 1.8 mmol/L (0.5-2.2) 08/10/19 10:04 Calcium 9.6 mg/dL (8.5-10.3) 08/10/19 05:19 Magnesium 2.1 mg/dL (1.7-2.8) 08/06/19 05:05 Total Bilirubin 2.0 mg/dL (0.2-1.0) H 08/10/19 05:19 AST 44 IU/L (10-42) H 08/10/19 05:19 ALT 27 IU/L (10-60) 08/10/19 05:19 Alkaline Phosphatase 57 IU/L (42-121) 08/10/19 05:19 Troponin I High Sens 18.6 pg/mL (2.3-14.8) H* 08/10/19 10:04 B-Natriuretic Peptide 141 pg/mL (5-100) H 08/09/19 23:34 Total Protein 5.8 g/dL (6.7-8.2) L 08/10/19 05:19 Albumin 2.9 g/dL (3.2-5.5) L 08/10/19 05:19 Globulin 2.9 g/dL (2.1-4.2) 08/10/19 05:19 Albumin/Globulin Ratio 1.0 (1.0-2.2) 08/10/19 05:19 Lipase 25 U/L (22-51) 08/05/19 15:54 Vitamin B12 2180 pg/mL (180-914) H 08/06/19 05:05 Folate 13.74 ng/mL (5.90 - >24.8) 08/06/19 05:05 TSH 0.31 uIU/mL (0.34-5.60) L 08/06/19 05:09 Free T4 0.83 ng/dL (0.58-1.64) 08/07/19 04:37 Free T3 pg/mL 2.56 pg/mL (2.5-3.9) 08/09/19 06:20 Ethyl Alcohol < 5.0 mg/dL 08/05/19 15:54 Influenza A (Rapid) Negative (Negative) 08/06/19 21:10 Influenza B (Rapid) Negative (Negative) 08/06/19 21:10 Slides for Path Review Cancelled 08/10/19 08:04 Sepsis Event Note (H) - Evaluation Current Stage of Sepsis: Ruled out ABX Reporting Has patient been on IV antibiotics over the past 48 hours?: Yes Current Medications - Current Medications Current Medications: Active Medications Acetaminophen (Tylenol) 650 mg PO Q4HR PRN PRN Reason: Pain 1 to 4 Last Admin: 08/09/19 23:52 Dose: 650 mg Albuterol/Ipratropium (Duoneb) 3 ml INH RTQID OWEN Last Admin: 08/10/19 10:50 Dose: 3 ml Benzonatate (Tessalon) 100 mg PO TID PRN PRN Reason: Cough Last Admin: 08/09/19 23:53 Dose: 100 mg Enoxaparin Sodium (Lovenox) 40 mg SUBQ DAILY [facility] Last Admin: 08/10/19 09:02 Dose: 40 mg Guaifenesin/Codeine Phosphate (Robitussin Ac) 5 ml PO Q6HR PRN PRN Reason: Cough Last Admin: 08/10/19 00:59 Dose: 5 ml Cefepime HCl 1 gm/ Sodium (Chloride) 100 mls @ 200 mls/hr IV TID [facility] Last Infusion: 08/10/19 05:55 Dose: Infused Metronidazole (Flagyl 500 Mg/100 Ml) 500 mg in 100 mls @ 100 mls/hr IV Q8H [facility] Last Infusion: 08/10/19 05:15 Dose: Infused Potassium Chloride (Potassium Chloride) 10 meq in 100 mls @ 25 mls/hr IV Q1H [facility] Stop: 08/10/19 13:59 Last Admin: 08/10/19 10:41 Dose: 25 mls/hr Ondansetron HCl (Zofran Inj) 4 mg IVP Q6HR PRN PRN Reason: Nausea / Vomiting Last Admin: 08/08/19 01:21 Dose: 4 mg Pantoprazole Sodium (Protonix) 40 mg IVP QDAC [facility] Last Admin: 08/10/19 06:54 Dose: 40 mg Polyethylene Glycol (Miralax) 17 gm PO DAILY [facility] Last Admin: 08/10/19 08:53 Dose: Not Given Prochlorperazine Edisylate (Compazine Inj) 10 mg IVP Q6HR PRN PRN Reason: Nausea / Vomiting Last Admin: 08/08/19 05:19 Dose: 10 mg Promethazine HCl (Phenergan Inj) 25 mg IM Q6HR PRN PRN Reason: Nausea / Vomiting Saccharomyces Boulardii (Florastor) 250 mg PO BIDWM [facility] Last Admin: 08/10/19 08:56 Dose: 250 mg Sodium Chloride (Normal Saline Flush 0.9%) 10 ml IVP PRN PRN PRN Reason: NEEDED PER PROVIDER ORDERS Last Admin: 08/10/19 06:54 Dose: 10 ml Sodium Chloride (Normal Saline Flush 0.9%) 10 ml IVP 0100,0900,1700 [facility] Last Admin: 08/10/19 08:53 Dose: Not Given Zolpidem Tartrate (Ambien) 5 mg PO QPM PRN PRN Reason: Insomnia Last Admin: 08/09/19 23:53 Dose: 5 mg No Known Home Medications 08/07/19
--- NOTE | 2019-08-10 12:14 | XRAY Report ---
Reason: SOB Procedure Date: 08/10/2019 Accession Number: [id number] / [id number] Procedure: XR - Chest 1 View X-Ray CPT Code: 77404 FULL RESULT: EXAM: CHEST RADIOGRAPHY EXAM DATE: 08/10/2019 11:47 AM. CLINICAL HISTORY: Shortness of breath. COMPARISON: CHEST 1 VIEW 08/09/2019 11:15 AM. TECHNIQUE: 1 view. FINDINGS: Lungs/Pleura: Medial lung apices obscured by patient's chin. Bilateral alveolar and interstitial opacification, with a central predominance, slightly worse versus previous. Findings are compatible with pulmonary edema. Mediastinum: Imaged heart size stable. Other: None. IMPRESSION: Findings compatible with worsening pulmonary edema. RADIA
[2019-08-10] MEDS: ACETAMINOPHEN 325 MG TABLET PO PRN ×2 (14:07→20:47)
--- NOTE | 2019-08-10 16:35 | PROVIDER PROGRESS NOTE ---
Assessment/Plan - Problem List (1) Cholelithiasis Qualifiers: Cholelithiasis location: gallbladder Cholecystitis presence: without cholecystitis Biliary obstruction: without biliary obstruction Qualified Code(s): K80.20 - Calculus of gallbladder without cholecystitis without obstruction Assessment/Plan: clinically asymptomatic at this time; no evidence of acute cholecystitis or choledocholithiasis on US or clinically. Unclear if patient's recent sx are related to biliary tract. Rec: continue low fat diet; out pt f/u and consider cholecystectomy if biliary sx become evident. Discussed with pt and her who agree with this plan to avoid surgery unless clearly indicated. (2) Abnormal LFTs (liver function tests) Assessment/Plan: Etiology unclear; ddx includes NAFLD, hepatitis, meds, biliary, etc; stable at this time. Rec: further eval as appropriate. Not clearly biliary given w/u to date. - Current Meds Current Meds: Current Medications Generic Name Dose Route Start Last Admin Trade Name Freq PRN Reason Stop Dose Admin Acetaminophen 650 mg 08/05/19 18:19 08/10/19 14:07 Tylenol PO 650 mg Q4HR PRN Administration Pain 1 to 4 Albuterol/Ipratropium 3 ml 08/07/19 15:00 08/10/19 15:30 Duoneb INH 3 ml RTQID OWEN Administration Benzonatate 100 mg 08/05/19 18:37 08/09/19 23:53 Tessalon PO 100 mg TID PRN Administration Cough Enoxaparin Sodium 40 mg 08/06/19 09:00 08/10/19 09:02 Lovenox SUBQ 40 mg DAILY OWEN Administration Guaifenesin/Codeine Phosphate 5 ml 08/10/19 00:29 08/10/19 00:59 Robitussin Ac PO 5 ml Q6HR PRN Administration Cough Cefepime HCl 1 gm/ Sodium 100 mls @ 200 mls/hr 08/09/19 13:00 08/10/19 15:20 Chloride IV 200 mls/hr TID OWEN Administration Metronidazole 500 mg in 100 mls @ 100 mls/hr 08/09/19 13:00 08/10/19 14:05 Flagyl 500 Mg/100 Ml IV 100 mls/hr Q8H OWEN Administration Ondansetron HCl 4 mg 08/05/19 18:19 08/08/19 01:21 Zofran Inj IVP 4 mg Q6HR PRN Administration Nausea / Vomiting Pantoprazole Sodium 40 mg 08/05/19 19:00 08/10/19 06:54 Protonix IVP 40 mg QDAC OWEN Administration Polyethylene Glycol 17 gm 08/06/19 09:00 08/10/19 08:53 Miralax PO Not Given DAILY OWEN Prochlorperazine Edisylate 10 mg 08/05/19 18:19 08/08/19 05:19 Compazine Inj IVP 10 mg Q6HR PRN Administration Nausea / Vomiting Saccharomyces Boulardii 250 mg 08/06/19 08:00 08/10/19 08:56 Florastor PO 250 mg BIDWM OWEN Administration Sodium Chloride 10 ml 08/05/19 18:19 08/10/19 06:54 Normal Saline Flush 0.9% IVP 10 ml PRN PRN Administration NEEDED PER PROVIDER ORDERS Sodium Chloride 10 ml 08/06/19 01:00 08/10/19 08:53 Normal Saline Flush 0.9% IVP Not Given 0100,0900,1700 OWEN Zolpidem Tartrate 5 mg 08/05/19 18:19 08/09/19 23:53 Ambien PO 5 mg QPM PRN Administration Insomnia - Lab Result Lab results reviewed: Yes Fish Bone Diagrams: 08/10/19 10:04 08/10/19 05:19 - Diagnostic Imaging Results Diagnostic Imaging Results: Final report reviewed Diagnostic Imaging Results Comments: US abd from yesterday shows stones and sludge in gb but no sign of acute cholecystitis or choledocholithiasis or significant biliary dilatation. - Additional Planning Condition/Complexity: Improved Plan Discussed with:: Patient, Spouse, Other (hospitalist) Time Spent: 15-30 minutes Subjective - Subjective Patient Reports: Feeling Better, Resting Comfortably (denies abd pain, N/V/D. tolerating a low fat diet well.) Objective Vital Signs: Vital Signs - 24 hr 08/09/19 08/09/19 08/09/19 18:44 20:51 23:04 Temperature 37.0 C Heart Rate 108 H Heart Rate [ Activity] Heart Rate [ 102 H Brachial] Heart Rate [ 109 H Sitting (After 1 Minute)] Heart Rate [ 111 H Standing (After 1 Minute)] Heart Rate [ 105 H Supine] Respiratory 20 18 Rate Blood Pressure [Activity] Blood Pressure 151/85 H [Left Radial artery] Blood Pressure 187/107 H [Sitting (After 1 Minute)] Blood Pressure 167/108 H [Standing ( After 1 Minute) ] Blood Pressure 141/99 H [Supine] O2 Saturation 92 08/10/19 08/10/19 08/10/19 06:00 06:23 08:20 Temperature 36.9 C 36.4 C L Heart Rate 68 Heart Rate [ Activity] Heart Rate [ 86 99 Brachial] Heart Rate [ Sitting (After 1 Minute)] Heart Rate [ Standing (After 1 Minute)] Heart Rate [ Supine] Respiratory 24 16 20 Rate Blood Pressure [Activity] Blood Pressure 112/63 149/95 H [Left Radial artery] Blood Pressure [Sitting (After 1 Minute)] Blood Pressure [Standing ( After 1 Minute) ] Blood Pressure [Supine] O2 Saturation 92 92 08/10/19 08/10/19 08/10/19 09:00 10:50 12:25 Temperature Heart Rate 102 H Heart Rate [ 112 H Activity] Heart Rate [ Brachial] Heart Rate [ 93 Sitting (After 1 Minute)] Heart Rate [ 85 Standing (After 1 Minute)] Heart Rate [ 96 Supine] Respiratory 24 Rate Blood Pressure 190/95 H [Activity] Blood Pressure [Left Radial artery] Blood Pressure 174/74 H [Sitting (After 1 Minute)] Blood Pressure 167/148 H [Standing ( After 1 Minute) ] Blood Pressure 158/82 H [Supine] O2 Saturation 08/10/19 15:30 Temperature Heart Rate 92 Heart Rate [ Activity] Heart Rate [ Brachial] Heart Rate [ Sitting (After 1 Minute)] Heart Rate [ Standing (After 1 Minute)] Heart Rate [ Supine] Respiratory 20 Rate Blood Pressure [Activity] Blood Pressure [Left Radial artery] Blood Pressure [Sitting (After 1 Minute)] Blood Pressure [Standing ( After 1 Minute) ] Blood Pressure [Supine] O2 Saturation Oxygen O2 Source Nasal cannula I&O (Last 24 Hrs): Intake and Output Totals x24h 08/08/19 08/09/19 08/10/19 23:59 23:59 23:59 Intake Total 6327.670 9773.275 1276.389 Output Total 1200 2265 1725 Balance 145.000 -774.725 -448.611 General: Alert, Cooperative, No acute distress Respiratory: Chest non-tender, No respiratory distress, Breath sounds nml Abdomen: Soft, No tenderness, No hepatospenomegaly, No masses - Results Results: Laboratory Results WBC 6.8 x10^3/uL (4.8-10.8) 08/10/19 10:04 RBC 4.47 10^6/uL (4.20-5.40) 08/10/19 10:04 Hgb 14.9 g/dL (12.0-16.0) 08/10/19 10:04 Hct 46.9 % (37.0-47.0) 08/10/19 10:04 MCV 104.9 fL (81.0-99.0) H 08/10/19 10:04 MCH 33.3 pg (27.0-31.0) H 08/10/19 10:04 MCHC 31.8 g/dL (32.0-36.0) L 08/10/19 10:04 RDW 15.0 % (12.0-15.0) 08/10/19 10:04 Plt Count 118 10^3/uL (130-450) L 08/10/19 10:04 MPV 11.3 fL (7.9-10.8) H 08/10/19 10:04 Neut # (Auto) 4.1 10^3/uL (1.5-6.6) 08/10/19 10:04 Lymph # (Auto) 1.4 10^3/uL (1.5-3.5) L 08/10/19 10:04 [place]air # (Auto) 0.8 10^3/uL (0.0-1.0) 08/10/19 10:04 Eos # (Auto) 0.2 10^3/uL (0.0-0.7) 08/10/19 10:04 Baso # (Auto) 0.1 10^3/uL (0.0-0.1) 08/10/19 10:04 Absolute Nucleated RBC 0.00 x10^3/uL 08/10/19 10:04 Total Counted 100 08/08/19 04:55 Band Neuts % (Manual) 0 % (0-10) 08/08/19 04:55 Abnorm Lymph % (Manual) 0 % 08/08/19 04:55 Promyelocytes % 1 % (-0) H 08/08/19 04:55 Nucleated RBC % 0.0 /100WBC 08/10/19 10:04 Neutrophils # (Manual) 3.2 10^3/uL (1.5-6.6) 08/08/19 04:55 Lymphocytes # (Manual) 1.4 10^3/uL (1.5-3.5) L 08/08/19 04:55 Monocytes # (Manual) 0.8 10^3/uL (0.0-1.0) 08/08/19 04:55 Eosinophils # (Manual) 0.1 10^3/uL (0-0.7) 08/08/19 04:55 Basophils # (Manual) 0.0 10^3/uL (0-0.1) 08/08/19 04:55 Differential Comment MANUAL DIFFERENTIAL 08/08/19 04:55 Manual Slide Review Cancelled 08/10/19 08:04 WBC Morphology NORMAL APPEARANCE (NORMAL) 08/08/19 04:55 Platelet Estimate DECREASED (<130,000) (NORMAL) 08/08/19 04:55 Platelet Morphology NORMAL APPEARANCE (NORMAL) 08/08/19 04:55 RBC Morph Micro Appear NORMAL APPEARANCE (NORMAL) 08/08/19 04:55 Sodium 145 mmol/L (135-145) 08/10/19 05:19 Potassium 2.9 mmol/L (3.5-5.0) L 08/10/19 05:19 Chloride 97 mmol/L (101-111) L 08/10/19 05:19 Carbon Dioxide 41 mmol/L (21-32) H* 08/10/19 05:19 Anion Gap 7.0 (6-13) 08/10/19 05:19 BUN 8 mg/dL (6-20) 08/10/19 05:19 Creatinine 0.5 mg/dL (0.4-1.0) 08/10/19 05:19 Estimated GFR (MDRD) 122 (>89) 08/10/19 05:19 Glucose 127 mg/dL (70-100) H 08/10/19 05:19 Lactic Acid 1.8 mmol/L (0.5-2.2) 08/10/19 10:04 Calcium 9.6 mg/dL (8.5-10.3) 08/10/19 05:19 Magnesium 2.1 mg/dL (1.7-2.8) 08/06/19 05:05 Total Bilirubin 2.0 mg/dL (0.2-1.0) H 08/10/19 05:19 AST 44 IU/L (10-42) H 08/10/19 05:19 ALT 27 IU/L (10-60) 08/10/19 05:19 Alkaline Phosphatase 57 IU/L (42-121) 08/10/19 05:19 Troponin I High Sens 18.6 pg/mL (2.3-14.8) H* 08/10/19 10:04 B-Natriuretic Peptide 141 pg/mL (5-100) H 08/09/19 23:34 Total Protein 5.8 g/dL (6.7-8.2) L 08/10/19 05:19 Albumin 2.9 g/dL (3.2-5.5) L 08/10/19 05:19 Globulin 2.9 g/dL (2.1-4.2) 08/10/19 05:19 Albumin/Globulin Ratio 1.0 (1.0-2.2) 08/10/19 05:19 Lipase 25 U/L (22-51) 08/05/19 15:54 Vitamin B12 2180 pg/mL (180-914) H 08/06/19 05:05 Folate 13.74 ng/mL (5.90 - >24.8) 08/06/19 05:05 TSH 0.31 uIU/mL (0.34-5.60) L 08/06/19 05:09 Free T4 0.83 ng/dL (0.58-1.64) 08/07/19 04:37 Free T3 pg/mL 2.56 pg/mL (2.5-3.9) 08/09/19 06:20 Ethyl Alcohol < 5.0 mg/dL 08/05/19 15:54 Influenza A (Rapid) Negative (Negative) 08/06/19 21:10 Influenza B (Rapid) Negative (Negative) 08/06/19 21:10 Slides for Path Review Cancelled 08/10/19 08:04 Sepsis Event Note (H) - Evaluation Current Stage of Sepsis: Ruled out ABX Reporting Has patient been on IV antibiotics over the past 48 hours?: Yes
[2019-08-10] MEDS: BENZONATATE 100 MG CAPSULE PO PRN ×2 (16:38→22:33)
[2019-08-10] MEDS ORDERED: hydrALAZINE INJ 20 MG/ML VIAL IVP PRN (17:54)
[2019-08-10] MEDS: FUROSEMIDE 20 MG TABLET PO SCH (18:38)
[2019-08-10] MEDS: ZOLPIDEM 5 MG TABLET PO PRN (22:33)
[2019-08-11] MEDS: SODIUM CHLORIDE FLUSH 0.9% 10 ML SYRINGE IVP SCH ×2 (00:20→08:21)
[2019-08-11] MEDS: guaiFENesin/CODEINE 5 ML UDC PO PRN (00:20)
[2019-08-11] MEDS: ACETAMINOPHEN 325 MG TABLET PO PRN ×2 (02:19→14:55)
[2019-08-11] MEDS: BENZONATATE 100 MG CAPSULE PO PRN (04:19)
[2019-08-11] MEDS: metroNIDAZOLE 500 MG/100 ML 500 MG/100 ML BAG IV SCH ×2 (04:57→14:08)
[2019-08-11 04:58] LABS: BASOPHILS # (AUTO) 0.1 10^3/uL (0.0-0.1); BASOPHILS % (AUTO) 0.8 %; EOSINOPHILS # (AUTO) 0.2 10^3/uL (0.0-0.7); EOSINOPHILS % (AUTO) 2.2 %; HGB - HEMOGLOBIN 14.2 g/dL (12.0-16.0); MEAN CORPUSCULAR HEMOGLOBIN 34.2 pg (27.0-31.0); MEAN CORPUSCULAR HGB CONC 32.3 g/dL (32.0-36.0); MEAN PLATELET VOLUME 11.8 fL (7.9-10.8); MONOCYTES # (AUTO) 1.2 10^3/uL (0.0-1.0); MONOCYTES % (AUTO) 13.7 %; NEUTROPHILS % (AUTO) 58.3 %; PLT - PLATELET COUNT 118 10^3/uL (130-450); RED BLOOD COUNT 4.15 10^6/uL (4.20-5.40); RED CELL DISTRIBUTION WIDTH 14.9 % (12.0-15.0); WHITE BLOOD COUNT 8.5 x10^3/uL (4.8-10.8)
[2019-08-11] MEDS: SODIUM CHLORIDE FLUSH 0.9% 10 ML SYRINGE IVP PRN ×3 (04:58→06:55)
[2019-08-11 05:13] LABS: ALBUMIN 3.2 g/dL (3.2-5.5); ALBUMIN/GLOBULIN RATIO 1.1 (1.0-2.2); BILIRUBIN,TOTAL 2.1 mg/dL (0.2-1.0); CALCIUM 9.5 mg/dL (8.5-10.3); CREATININE 0.5 mg/dL (0.4-1.0); TOTAL PROTEIN 6.2 g/dL (6.7-8.2)
[2019-08-11] MEDS: CEFEPIME 1 GM in SODIUM CHLORIDE 0.9% MINIBAG 100 ML IV SCH ×2 (06:11→14:08)
[2019-08-11] MEDS ORDERED: POTASSIUM CHLORIDE 20 MEQ TABLET PO ONE (06:26)
[2019-08-11] MEDS: FUROSEMIDE 20 MG TABLET PO SCH ×2 (06:46→14:08)
[2019-08-11] MEDS: PANTOPRAZOLE 40 MG VIAL IVP SCH (06:55)
[2019-08-11] MEDS: IPRATROPIUM/ALBUTEROL 3 ML NEB INH SCH ×3 (07:37→15:05)
[2019-08-11] MEDS: ENOXAPARIN 40 MG/0.4 ML SYRINGE SUBQ SCH (08:21)
[2019-08-11] MEDS: SACCHAROMYCES BOULARDII 250 MG CAPSULE PO SCH (08:21)
[2019-08-11] MEDS: POLYETHYLENE GLYCOL 3350 17 GM PACKET PO SCH (08:21)
--- NOTE | 2019-08-11 14:58 | Discharge Plan ---
Discharge Plan Problem Reviewed?: Yes Disposition: Home, Self Care Condition: Stable Prescriptions: Albuterol Sulfate [Proair Hfa Inhaler] 1 - 2 puffs INH Q4H PRN #1 inhaler PRN Reason: Shortness Of Air/Wheezing Cephalexin [Keflex] 250 mg PO QID #20 capsule Ipratropium [Atrovent] 1 puffs INH Q6H PRN #1 inhaler PRN Reason: Shortness Of Air/Wheezing Diet: Regular Activity Restrictions: Activity as Tolerated Shower Restrictions: No (fall precaution) Instruction Topics: Gallstones, Pneumonia, COPD, Cephalexin tablets or capsules, Albuterol Ipratropium solution for inhalation Health Concerns: gallstone, pneumonia Plan of Treatment: your nausea, vomiting, and abdominal pain were resolved. advise you followup y our surgeon Dr. Antonio Ware if you continue to have medical concern. You are prescribed antibiotics for finishing your pneumonia treatment course. you are prescribed albuterol and ipratropium PRN for your breath treatment, and home oxygen is prescribed for you. advise you followup RT instruction safely to use home oxygen. Care Goals: stabilization and improvement of your medical conditions Additional Instructions or Follow Up instructions: you may followup your PCP in one week, followup your surgeon Dr. Antonio Ware and gluing machine operator electronic as out-pt. Should your symptoms return or worsen, you may present ER or call 911 for help Follow-Up Care: [facility] - Pulmonary, Outpatient Rehab - PT, Outpatient Rehab - OT No Smoking: If you smoke, Please STOP! Call for help. Follow-up with: Sapna Watts MD [Primary Care Provider] -
--- NOTE | 2019-08-11 15:14 | DISCHARGE SUMMARY ---
"Discharge Summary Admit Date: 08/05/19 Discharge Date: 08/11/19 Discharging Provider: PLUNKETT Primary Care Provider: Dr Yang Condition at Discharge: Stable Discharge Disposition: 01 Home, Self Care Discharge Facility Name: home - DIAGNOSES Admission Diagnoses: (1) Pneumonia (2) Hypokalemia (3) Vomiting (4) GERD (gastroesophageal reflux disease) (5) Hypothyroid (6) Sleep apnea Discharge Diagnoses with Status of Each Condition: (1) Pneumonia stable, WBC is normal. pt walked 300ft with RT, and walked with PT/OT without obvious distress or shortness of breath, but pt need O2 supplement. pt is prescribed home oxygen. RT advised pt how safely to use home oxygen pt is prescribed antibiotics Keflex to finish the treatment course 2) nausea, vomiting and abdominal pain resolved. pt has no more N/V or abdominal pain. pt tolerated diet. pt has sludge and gallstone. Dr. Antonio Ware was consulted. Dr. Ware advised pt followup him if pt continue to have medical concern. pt understood that. (3) Pulmonary edema stable.pt walked 300ft with RT, and walked with PT/OT without obvious distress or shortness of breath pt's ECHO is unremarkable (4) Altered mental status resolved (5) Hypothyroid stable (6) Sleep apnea stable. pt is advised to followup PCP and materials branch chief for sleep study (7) Tobacco use pt is advised to quit (8) Hypokalemia replaced (9) Fall PT/OT evaluated and treated for pt, out-pt PT was recommended to pt (10) Gastritis resolved, pt has no more N/V or abdominal pain. (11) COPD pt was listed to have COPD diagnosis at 2016 but pt report she did not followup management, did not list her COPD diagnosis as her medical hx in [facility]. pt had no home meds. pt is prescribed Albuterol, ipratropium PRN HFA. pt has 88% sats on room air at rest, 88% sats on room air at ambulation. with oxygen 3lpm on ambulation, pt had 89% sats. on oxygen 4 lpm NC on ambulation, pt had 93% sats. I am ordering home O2 at 4 lpm via nasal cannula for pt at ambulation. (12)medical non-compliance pt's reported pt stay at home for three years without outdoor, pt did not follow up her medical management. pt has no any meds in her home meds list. pt was advised to followup her medical management. pt report she had short term muscle spasm at her back as her chronic problem, and on and off, and ask me prescribe a few pill baclofen PRN. effects and side effect was explained by me to pt and her . - HPI History of Present Illness: Patient seen and examined on 08/05/19 around 1945pm Patient is a 73 y/o female who presented to the ED with complain of nausea, vomiting and diarrhea. Her symptoms have been going on for a couple of weeks, but has gotten progressively worse. She has also been coughing. This is significantly interfering with her sleep. Today she had 3 episodes of vomiting with the most significant being in the ED. She complains of chest pain and back pain which appear to be positional. She complains of epigastric pain. She denies fever but reports chills. She has not been around anybody sick. She has not been out of the house for the the past 2-3 years. She would venture as far as the front of the house for air. The main reason is due to frequent falls. She requires help getting in and out of the bath tub. She ambulates without any walking aid at home. Her lower extremity are dry, scaly and dusky in appearance. Overall she appears uncomfortable and upset as a result. In the ED work up included a CT of the abdomen/pelvis. Though unremarkable for any significant intra-abdominal process, it indicated a left lower lobe pneumonia. As a result she is being admitted for further treatment. - CONSULTS | PROCEDURES Consultations: Dr. Antonio Ware Procedures: no procedure - HOSPITAL COURSE Hospital Course: pt was admitted for her GI symptoms, nausea, vomiting and abdominal pain. CT of abdomen did find cholelithiasis, left lower lobe pneumonia. pt continued to report her GI symptoms. pt was consulted by GI surgeon Dr. Antonio Ware. pt had US of abdomen which did not find common bile stone, acute cholecystitis. Then pt's GI symptoms was resolved. pt has no more N/V or abdominal pain. pt was continued treated with antibiotics for her pneumonia. pt had PT/OT evaluation and treatment. pt had breath treatment for her COPD. pt was prescribed home Oxygen, albuterol, Ipratropium, antibiotics Keflex to home. The detail hospital course is as the blow: 1) Pneumonia stable, WBC is normal. pt walked 300ft with RT, and walked with PT/OT without obvious distress or shortness of breath, but pt need O2 supplement. pt is prescribed home oxygen. RT advised pt how safely to use home oxygen pt is prescribed antibiotics Keflex to finish the treatment course 2) nausea, vomiting and abdominal pain resolved. pt has no more N/V or abdominal pain. pt tolerated diet. pt has sludge and gallstone. Dr. Antonio Ware was consulted. Dr. Ware advised pt followup him if pt continue to have medical concern. pt understood that. (3) Pulmonary edema stable.pt walked 300ft with RT, and walked with PT/OT without obvious distress or shortness of breath pt's ECHO is unremarkable (4) Altered mental status resolved (5) Hypothyroid stable (6) Sleep apnea stable. pt is advised to followup PCP and materials branch chief for sleep study (7) Tobacco use pt is advised to quit (8) Hypokalemia replaced (9) Fall PT/OT evaluated and treated for pt, out-pt PT was recommended to pt (10) Gastritis resolved, pt has no more N/V or abdominal pain. (11) COPD pt was listed to have COPD diagnosis at 2016 but pt report she did not followup management, did not report to list her COPD diagnosis as her medical hx in [facility]. pt had no home meds. pt is prescribed Albuterol, ipratropium PRN HFA. pt has 88% sats on room air at rest, 88% sats on room air at ambulation. with oxygen 3lpm on ambulation, pt had 89% sats. on oxygen 4 lpm NC on ambulation, pt had 93% sats. I am ordering home O2 at 4 lpm via nasal cannula for pt at ambulation. (12)medical non-compliance pt's reported pt stay at home for three years without outdoor, pt did not follow up her medical management. pt has no any meds in her home meds list. pt was advised to followup her medical management. pt report she had short term muscle spasm at her back as her chronic problem, and on and off, and ask me prescribe a few pill baclofen PRN. effects and side effect was explained by me to pt and her . - ALLERGIES Allergies/Adverse Reactions: Allergies Allergy/AdvReac Type Severity Reaction Status Date / Time nicotine [From Nicoderm CQ] Allergy Intermediate Skin Verified 08/05/19 15:18 Blisters levothyroxine sodium Allergy Unknown Unknown Verified 08/05/19 15:18 - MEDICATIONS Home Medications: Ambulatory Orders Medication Instructions Recorded Confirmed Albuterol Sulfate [Proair Hfa 1 - 2 puffs INH Q4H PRN #1 inhaler 08/11/19 Inhaler] Baclofen [Lioresal] 10 mg PO TID PRN #9 tablet 08/11/19 Cephalexin [Keflex] 250 mg PO QID #20 capsule 08/11/19 Ipratropium [Atrovent] 1 puffs INH Q6H PRN #1 inhaler 08/11/19 - PHYSICAL EXAM AT DISCHARGE General Appearance: positive: No acute distress, Alert. negative: Lethargic Eyes Bilateral: positive: Normal inspection, PERRL, No lid inflammation ENT: positive: ENT inspection nml, Pharynx nml, No signs of dehydration. negative: Purulent nasal drainage Neck: positive: Nml inspection, Thyroid nml, No JVD, Trachea midline. negative: Thyromegaly, Lymphadenopathy (R), Lymphadenopathy (L), Stiff neck, Tracheal deviation Respiratory: positive: Chest non-tender, No respiratory distress. negative: Wheezes, Rales, Rhonchi Cardiovascular: positive: Regular rate & rhythm, No murmur, No gallop. negative: Irregularly irregular, Extrasystoles, Tachycardia, Bradycardia, JVD present, Systolic murmur, Diastolic murmur Peripheral Pulses: positive: 2+ Abdomen: positive: Non-tender, No organomegaly, Nml bowel sounds, No distention. negative: Tenderness, Guarding, Rebound Back: positive: Nml inspection. negative: CVA tenderness (R), CVA tenderness (L) Skin: positive: Color nml, No rash, Warm, Dry. negative: Cyanosis, Diaphoresis, Pallor Extremities: positive: Non-tender, Full ROM, Nml appearance. negative: Calf tenderness, Geovanni's sign/cords Neurologic/Psychiatric: positive: Oriented x3, Motor nml, Sensation nml, Mood/affect nml. negative: Weakness, Sensory loss, Facial droop, Slurred/abnml speech, Depressed mood/affect - LABS Result Diagrams: 08/11/19 04:45 08/11/19 04:45 - SEPSIS Current Stage of Sepsis: Ruled out - FOLLOW UP Follow Up: your nausea, vomiting, and abdominal pain were resolved. advise you followup your surgeon Dr. Antonio Ware if you continue to have medical concern. You are prescribed antibiotics for finishing your pneumonia treatment course. you are prescribed albuterol and ipratropium PRN for your breath treatment, and home oxygen is prescribed for you. advise you followup RT instruction safely to use home oxygen. you may followup your PCP in one week, followup your surgeon Dr. Antonio Ware and materials branch chief as out-pt. Should your symptoms return or worsen, you may present ER or call 911 for help - TIME SPENT Time Spent in Discharge (Minutes): 55"
[2019-08-11 16:44] VITALS: BP 115/92
== END 2019-08-11 16:30 | disposition home or self-care (01) | DRG 194 ==
LOC: ED 15:02 → MS3 18:19 → UNDOADMIN 18:19 → MS3 08-08 00:01 → UNDODISIN 08-11 16:30
PROVIDERS: ADMIT Nurse Practitioner Gerontology; ATTEND Nurse Practitioner Gerontology
DX: J18.1 Lobar pneumonia, unspecified organism (principal); J81.1 Chronic pulmonary edema; E87.3 Alkalosis; R11.2 Nausea with vomiting, unspecified; R00.1 Bradycardia, unspecified; K80.20 Calculus of gallbladder without cholecystitis without obstruction; E78.00 Pure hypercholesterolemia, unspecified; J44.9 Chronic obstructive pulmonary disease, unspecified; G47.30 Sleep apnea, unspecified; F17.200 Nicotine dependence, unspecified, uncomplicated; E87.6 Hypokalemia; A08.4 Viral intestinal infection, unspecified; R41.82 Altered mental status, unspecified; E86.0 Dehydration; K21.9 Gastro-esophageal reflux disease without esophagitis; E03.9 Hypothyroidism, unspecified; M62.830 Muscle spasm of back; M79.7 Fibromyalgia; R01.1 Cardiac murmur, unspecified; H54.7 Unspecified visual loss; Z91.19 Patient's noncompliance with other medical treatment and regimen; Z99.81 Dependence on supplemental oxygen; Z91.81 History of falling; Z72.89 Other problems related to lifestyle
CPT/HCPCS: 36415; 71045; 74177; 76705; 80053; 82607; 82746; 83605; 83690; 83735; 83880; 84439; 84443; 84481; 84484; 85025; 87040; 87275; 87276; 93005; 93306; 94640; 94761; 96365; 96367; 96375; 97161; 97165; 97530; 99284; 99285; A9270; J1170; J1650; J7040; Q9967; 80320

== ENCOUNTER 2019-08-17 01:21 | Emergency (ER) | payer MEDICARE, OTHER ==
[2019-08-17] MEDS ORDERED: IOVERSOL 320 100 ML VIAL IVP ONE ×4 (01:22→03:56)
--- NOTE | 2019-08-17 01:51 | ED Physician Documentation ---
History of Present Illness - Stated complaint Stated Complaint: BODY PX, DIZZY, WEAK - Chief complaint Chief Complaint: Resp - History obtained from History obtained from: Patient (limited due to AMS), Family - History of Present Illness Timing: How many weeks ago (3-4) Pain level max: 10 Pain level now: 10 Radiates to: left upper chest (left chest pain), around bilateral abdominal flanks (abdominal pain) Improved by: rest Worsened by: movement - Additonal information Additional information: T+R from this ED 1 month ago, returned 08/05 for worsening symptoms. Her chief complaint is pain; she indicates she has left chest pain radiating to midline and around left lateral chest, as well as abdominal pain that is across upper abdomen, radiating around both flanks to back. She has also had worsening back pain since recent inpatient stay, and fluctuating mental status (presently significantly altered). During inpatient stay 08/05-08/11, she was being treated for pneumonia (noted on CT A/P, LLL), AMS, and evaluated for gallstones. Her AMS resolved without specific intervention, her pain was controlled with analgesics, and her abdominal pain then resolved and thus no further treatment regarding her gallstones was undertaken. She was sent home on 4 L/min oxygen due to hypoxia. says she has COPD diagnosis but has never needed oxygen at home in the past. Review of Systems Unable to obtain: AMS Cardiac: reports: Chest pain / pressure Respiratory: reports: Dyspnea, Cough, Wheezing GI: reports: Abdominal Pain Musculoskeletal: reports: Back pain Neurologic: reports: Confused, Altered mental status PD PAST MEDICAL HISTORY - Past Medical History Cardiovascular: Murmur Respiratory: Sleep apnea Endocrine/Autoimmune: HyPOthyroidism GI: GERD HEENT: Chronic vision loss Musculoskeletal: Fibromyalgia - Past Surgical History Past Surgical History: Yes - Present Medications Home Medications: Ambulatory Orders Medication Instructions Recorded Confirmed Albuterol Sulfate [Proair Hfa 1 - 2 puffs INH Q4H PRN #1 inhaler 08/11/19 Inhaler] Baclofen [Lioresal] 10 mg PO TID PRN #9 tablet 08/11/19 Cephalexin [Keflex] 250 mg PO QID #20 capsule 08/11/19 Ipratropium [Atrovent] 1 puffs INH Q6H PRN #1 inhaler 08/11/19 - Allergies Allergies/Adverse Reactions: Allergies Allergy/AdvReac Type Severity Reaction Status Date / Time [facility] Allergy Intermediate Skin Verified 08/17/19 01:38 Blisters levothyroxine sodium Allergy Unknown Unknown Verified 08/17/19 01:38 - Social History Does the pt smoke?: Yes Smoking Status: Former smoker Does the pt drink ETOH?: No Does the pt have substance abuse?: No - Immunizations Immunizations are current?: Yes - POLST Patient has POLST: No POLST Status: Full Code PD ED PE NORMAL - Vitals Vital signs reviewed: Yes - General General: Other (obese) - HEENT HEENT: Atraumatic, PERRL, EOMI, Other (dry mucous membranes) - Neck Neck: Supple, no meningeal sign - Abdomen Abdomen: Soft, Non tender, Non distended - Back Back: No CVA TTP - Derm Derm: Normal color, Warm and dry, No rash - Extremities Extremities: Normal ROM s pain, No edema PD ED PE EXPANDED - General General: In Pain, In distress (appears to be in both painful distress and mild/moderate respiratory distress) - Cardiac Cardiac: Tachy, Regular Rhythm (frequent extra beats) - Respiratory Respiratory: Distress, Wheezing, Rhonchi, Decreased breath sounds (LLL) - GCS Eye Opening: Spontaneous Motor: Obeys Commands Verbal: Confused Total: 14 Results - Vitals Vitals: Vital Signs - 24 hr 08/17/19 08/17/19 08/17/19 01:27 01:37 01:59 Temperature 37 C Heart Rate 140 H 130 H Respiratory 26 H 24 Rate Blood Pressure 150/90 H 150/90 H O2 Saturation 78 L 78 L 95 08/17/19 08/17/19 08/17/19 02:07 02:18 02:30 Temperature Heart Rate 131 H 104 H Respiratory 22 24 Rate Blood Pressure 126/105 H O2 Saturation 96 93 97 08/17/19 08/17/19 08/17/19 02:38 03:14 03:30 Temperature Heart Rate 89 108 H 106 H Respiratory 20 16 17 Rate Blood Pressure 125/79 O2 Saturation 97 95 08/17/19 08/17/19 08/17/19 04:00 04:10 04:32 Temperature Heart Rate 116 H 112 H Respiratory 19 16 Rate Blood Pressure 126/82 H 122/80 O2 Saturation 94 89 L 95 08/17/19 08/17/19 08/17/19 05:00 05:30 06:00 Temperature Heart Rate 110 H 107 H 106 H Respiratory 19 20 16 Rate Blood Pressure 112/80 111/85 H 105/79 O2 Saturation 89 L 92 93 08/17/19 08/17/19 08/17/19 06:30 07:00 07:30 Temperature 36.9 C Heart Rate 106 H 101 H 100 Respiratory 16 17 20 Rate Blood Pressure 121/89 H 124/94 H 120/99 H O2 Saturation 96 96 96 08/17/19 08/17/19 08/17/19 08:00 08:30 09:46 Temperature 97.9 C H 36.6 C Heart Rate 96 93 108 H Respiratory 21 19 22 Rate Blood Pressure 115/85 H 107/79 119/93 H O2 Saturation 94 91 L 94 08/17/19 08/17/19 10:00 10:45 Temperature Heart Rate 102 H 94 Respiratory 18 20 Rate Blood Pressure 129/88 H 116/68 O2 Saturation 93 96 Oxygen O2 Source Non-rebreather mask Oxygen Flow Rate 10 - Labs Labs: Laboratory Tests 08/17/19 08/17/19 08/17/19 02:40 02:40 02:40 WBC 8.7 RBC 4.62 Hgb 15.5 Hct 49.5 H MCV 107.1 H MCH 33.5 H MCHC 31.3 L RDW 15.7 H Plt Count 143 MPV 12.4 H Neut # (Auto) 6.7 H Lymph # (Auto) 0.7 L Cochran # (Auto) 1.1 H Eos # (Auto) 0.1 Baso # (Auto) 0.1 Absolute Nucleated RBC 0.00 Nucleated RBC % 0.0 D-Dimer 745.8 H Bld Gas Analysis Time ABG pH ABG pCO2 ABG pO2 ABG HCO3 ABG Total CO2 ABG O2 Saturation ABG Base Excess Noe Test VBG pH VBG pCO2 VBG pO2 VBG HCO3 VBG Total CO2 VBG O2 Saturation VBG Base Excess Sodium 146 H Potassium 3.0 L Chloride 98 L Carbon Dioxide 39 H* Anion Gap 9.0 BUN 10 Creatinine 0.6 Estimated GFR (MDRD) 99 Glucose 151 H Lactic Acid Calcium 10.3 Total Bilirubin 1.3 H AST 68 H ALT 34 Alkaline Phosphatase 86 Troponin I High Sens B-Natriuretic Peptide Total Protein 6.3 L Albumin 2.9 L Globulin 3.4 Albumin/Globulin Ratio 0.9 L Lipase 33 08/17/19 08/17/19 08/17/19 02:40 02:40 02:40 WBC RBC Hgb Hct MCV MCH MCHC RDW Plt Count MPV Neut # (Auto) Lymph # (Auto) Cochran # (Auto) Eos # (Auto) Baso # (Auto) Absolute Nucleated RBC Nucleated RBC % D-Dimer Bld Gas Analysis Time ABG pH ABG pCO2 ABG pO2 ABG HCO3 ABG Total CO2 ABG O2 Saturation ABG Base Excess Noe Test VBG pH VBG pCO2 VBG pO2 VBG HCO3 VBG Total CO2 VBG O2 Saturation VBG Base Excess Sodium Potassium Chloride Carbon Dioxide Anion Gap BUN Creatinine Estimated GFR (MDRD) Glucose Lactic Acid 1.8 Calcium Total Bilirubin AST ALT Alkaline Phosphatase Troponin I High Sens 27.0 H* B-Natriuretic Peptide 95 Total Protein Albumin Globulin Albumin/Globulin Ratio Lipase 08/17/19 08/17/19 08/17/19 05:59 05:59 08:12 WBC RBC Hgb Hct MCV MCH MCHC RDW Plt Count MPV Neut # (Auto) Lymph # (Auto) Cochran # (Auto) Eos # (Auto) Baso # (Auto) Absolute Nucleated RBC Nucleated RBC % D-Dimer Bld Gas Analysis Time 0818 ABG pH 7.43 ABG pCO2 57 H ABG pO2 54 L* ABG HCO3 36.8 H ABG Total CO2 38.6 H ABG O2 Saturation 89 L ABG Base Excess 9.9 H Noe Test POSITIVE VBG pH 7.408 VBG pCO2 62.6 H VBG pO2 86.2 H VBG HCO3 38.6 H VBG Total CO2 40.5 H VBG O2 Saturation 97.2 H VBG Base Excess 10.7 H Sodium Potassium Chloride Carbon Dioxide Anion Gap BUN Creatinine Estimated GFR (MDRD) Glucose Lactic Acid Calcium Total Bilirubin AST ALT Alkaline Phosphatase Troponin I High Sens 30.8 H* B-Natriuretic Peptide Total Protein Albumin Globulin Albumin/Globulin Ratio Lipase - Rads (name of study) CT chest w/ IV contrast (PE study) Radiology: Prelim report reviewed, See rad report head CT Radiology: Prelim report reviewed, See rad report PD MEDICAL DECISION MAKING - ED course Complexity details: reviewed results, re-evaluated patient, considered differential, d/w patient, d/w family ED course: given duoneb and 0.5mg IV dilaudid. She appeared significantly more comfortable for remainder of ED stay after the dilaudid and did not require further analgesics in ED. Her respiratory status from an observational standpoint also improved early in ED stay (decreasing respiratory distress, decreasing tachypnea, decreased WOB) although she did require high amount of supplemental oxygen (between 10-15 L, including 15 L NRB for much of her stay, but this was able to be decreased to 10 liters by oxymask later in stay). Her testing tonight shows substantial increase in her LLL pulmonary process, as well as a large (6x6cm) mass in right hilum, new thoracic vertebral fracures (T11, T12), mediastinal adenopathy concerning for metastases. D/W Dr. Angelito Rob at [facility]; she requests ABG as well as vanomycin, cefepime, and flagyl (blood cultures have already been drawn). I called her back with results of ABG and she accepts patient for transfer to [facility] Departure - Departure Disposition: 02 Transfer Acute Care Hosp Clinical Impression: Moderate COPD (chronic obstructive pulmonary disease), Cholelithiasis, Pulmonary mass, Dyspnea Condition: Serious Discharge Date/Time: 08/17/19 11:14
[2019-08-17] MEDS ORDERED: SODIUM CHLORIDE 0.9% 1,000 ML IV STA (02:17)
[2019-08-17] MEDS ORDERED: HYDROmorphone 1 MG/ML CARPUJECT IVP STA (02:17)
[2019-08-17] MEDS ORDERED: IPRATROPIUM/ALBUTEROL 3 ML NEB INH STA (02:19)
[2019-08-17 02:50] LABS: BASOPHILS # (AUTO) 0.1 10^3/uL (0.0-0.1); BASOPHILS % (AUTO) 0.9 %; EOSINOPHILS # (AUTO) 0.1 10^3/uL (0.0-0.7); HGB - HEMOGLOBIN 15.5 g/dL (12.0-16.0); LYMPHOCYTES # (AUTO) 0.7 10^3/uL (1.5-3.5); LYMPHOCYTES % (AUTO) 7.8 %; MEAN CORPUSCULAR HEMOGLOBIN 33.5 pg (27.0-31.0); MEAN CORPUSCULAR HGB CONC 31.3 g/dL (32.0-36.0); MEAN CORPUSCULAR VOLUME 107.1 fL (81.0-99.0); MEAN PLATELET VOLUME 12.4 fL (7.9-10.8); MONOCYTES # (AUTO) 1.1 10^3/uL (0.0-1.0); MONOCYTES % (AUTO) 12.1 %; NEUTROPHILS # (AUTO) 6.7 10^3/uL (1.5-6.6); NEUTROPHILS % (AUTO) 77.2 %; PLT - PLATELET COUNT 143 10^3/uL (130-450); RED BLOOD COUNT 4.62 10^6/uL (4.20-5.40); RED CELL DISTRIBUTION WIDTH 15.7 % (12.0-15.0); WHITE BLOOD COUNT 8.7 x10^3/uL (4.8-10.8)
[2019-08-17 03:06] LABS: ALBUMIN 2.9 g/dL (3.2-5.5); ALBUMIN/GLOBULIN RATIO 0.9 (1.0-2.2); BILIRUBIN,TOTAL 1.3 mg/dL (0.2-1.0); CALCIUM 10.3 mg/dL (8.5-10.3); CREATININE 0.6 mg/dL (0.4-1.0); TOTAL PROTEIN 6.3 g/dL (6.7-8.2)
--- NOTE | 2019-08-17 04:30 | CT Report ---
Reason: dyspnea, chest pain, hypoxia Procedure Date: 08/17/2019 Accession Number: [id number] / [id number] Procedure: CT - ANGIO CHEST W/WO CPT Code: Final Report FULL RESULT: EXAM: CT ANGIOGRAM CHEST EXAM DATE: 08/17/2019 03:59 AM. CLINICAL HISTORY: Dyspnea, chest pain, hypoxia. COMPARISON: CHEST W/O 04/19/2016 8:51 AM ABDOMEN/PELVIS W/ 08/05/2019 4:45 PM. TECHNIQUE: Routine helical imaging was performed through the chest in the pulmonary arterial phase. IV Contrast: OPTI 320 80ML. Reconstructions: Coronal 3-D MIP reconstructions.Sagittal and coronal. In accordance with CT protocol optimization, one or more of the following dose reduction techniques were utilized for this exam: automated exposure control, adjustment of mA and/or KV based on patient size, or use of iterative reconstructive technique. FINDINGS: Pulmonary Arteries: Diagnostic quality: Adequate through the segmental arteries. No evidence for acute or chronic pulmonary emboli. No evidence of right heart strain. Lungs/Pleura: Possible pulmonary vascular congestion. Right basilar atelectasis or infiltrate. Masslike process at the right hilum and mediastinum encasing pulmonary vessels and bronchi. This area measures approximately 6.2 x 6.3 cm and is suspicious for malignancy. Dense airspace consolidation of the left lower lobe. Possible abnormal soft tissue encasement of left lower lobe pulmonary artery and bronchi. This could also represent malignancy. Trace pleural effusions. No pneumothorax. Mediastinum: Mild cardiomegaly. Mediastinal adenopathy. Azygous node measuring 2.4 x 1.9 cm. Multiple periaortic and AP window lymph nodes measuring up to 1.9 x 1.4 cm. Thoracic Aorta: Mild to moderate atherosclerosis. Ascending aorta measures 3.7 cm. No aortic dissection. Upper Abdomen: Lobulated liver margin consistent with cirrhosis. Indeterminate low-attenuation right lobe liver lesion measuring 2.2 cm. Indeterminate left lobe liver lesion measuring 0.8 cm. Calcified stones in the gallbladder without obvious cholecystitis. Other: Osteopenia. Degenerative changes in the spine. Mild compression fractures at T11 and T12 which are new compared with 08/05/2019. IMPRESSION: 1. No pulmonary emboli seen. 2. Suspect malignant process encasing right hilar structures and extending into the mediastinum, measuring 6.2 x 6.3 cm. 3. Increased dense consolidation in the left lower lobe with possible soft tissue encasement of left lower lobe vasculature and bronchi. There could be malignancy in this area as well. 4. Mediastinal adenopathy, likely metastatic. 5. Mild cardiomegaly and possible pulmonary vascular congestion. 6. Cirrhosis with indeterminate low-attenuation liver lesions. 7. Cholelithiasis without definite cholecystitis. 8. Mild compression fractures at T11 and T12. These are new compared with 08/05/2019. RADIA
--- NOTE | 2019-08-17 05:37 | CT Report ---
Reason: AMS Procedure Date: 08/17/2019 Accession Number: [id number] / [id number] Procedure: CT - HEAD WO CPT Code: Final Report FULL RESULT: EXAM: CT HEAD EXAM DATE: 08/17/2019 05:23 AM. CLINICAL HISTORY: Decreased mental status. COMPARISON: None. TECHNIQUE: Multiaxial CT images were obtained from the foramen magnum to the vertex. Reformats: Sagittal and coronal. IV contrast: None. In accordance with CT protocol optimization, one or more of the following dose reduction techniques were utilized for this exam: automated exposure control, adjustment of mA and/or KV based on patient size, or use of iterative reconstructive technique. FINDINGS: Parenchyma: No intraparenchymal hemorrhage. No evidence of mass, midline shift, or CT findings of infarction. Adam-white differentiation is distinct. Extraaxial Spaces: Normal for age. No subdural or epidural collections identified. Ventricles: Normal in size and position. Sinuses and Orbits: Imaged paranasal sinuses, orbits, and mastoids show no significant abnormality. Bones: No evidence of fracture or calvarial defect. Other: None. IMPRESSION: 1. No acute intracranial abnormality. RADIA
[2019-08-17 06:05] LABS: VBG PCO2 62.6 mmHg (41-51); VBG PH 7.408 (7.31-7.41); VBG PO2 86.2 mmHg (25-47)
[2019-08-17 06:06] LABS: VBG BASE EXCESS 10.7 mmol/L (-2 - +2); VBG TOTAL CO2 40.5 mmol/L (24-29)
[2019-08-17 08:22] LABS: ABG PCO2 57 mmHg (34-45); ABG PH 7.43 (7.35-7.45)
[2019-08-17 08:23] LABS: ABG BASE EXCESS 9.9 mmol/L (-2.0-3.0); ABG HCO3 36.8 mmol/L (22.0-26.0); ABG OXYGEN SATURATION 89 % (94-98); ABG PO2 54 mmHg (80-100); ABG TCO2 38.6 MMOL/L (21.0-29.0); ALLEN TEST POSITIVE
[2019-08-17] MEDS ORDERED: VANCOMYCIN INJ 1 GM in SODIUM CHLORIDE 0.9% 500 ML IV STA (08:45)
[2019-08-17] MEDS ORDERED: metroNIDAZOLE 500 MG/100 ML 500 MG/100 ML BAG IV STA (08:45)
[2019-08-17] MEDS ORDERED: CEFEPIME 1 GM in SODIUM CHLORIDE 0.9% MINIBAG 100 ML IV STA (08:46)
[2019-08-17] MEDS ORDERED: DEXAMETHASONE 10 MG/ML VIAL IVP STA (09:24)
[2019-08-17 10:55] VITALS: BP 116/68
== END 2019-08-17 11:14 | disposition short-term general hospital (02) ==
LOC: ED 01:21
DX: J44.9 Chronic obstructive pulmonary disease, unspecified (principal); R91.8 Other nonspecific abnormal finding of lung field; R59.0 Localized enlarged lymph nodes; R41.82 Altered mental status, unspecified; R07.9 Chest pain, unspecified; I48.92 Unspecified atrial flutter; I44.1 Atrioventricular block, second degree; K80.20 Calculus of gallbladder without cholecystitis without obstruction; K74.60 Unspecified cirrhosis of liver; M48.54XA Collapsed vertebra, not elsewhere classified, thoracic region, initial encounter for fracture; K21.9 Gastro-esophageal reflux disease without esophagitis; M79.7 Fibromyalgia; E03.9 Hypothyroidism, unspecified; Z87.891 Personal history of nicotine dependence
CPT/HCPCS: 36415; 36600; 70450; 71275; 80053; 82803; 83605; 83690; 83880; 84484; 85025; 85379; 87040; 93005; 94640; 96361; 96365; 96368; 96375; 99285; J1170; J3370; Q9967

== ENCOUNTER 2019-08-17 11:15 | Outpatient (CLI) | payer MEDICARE, OTHER | END 2019-08-17 11:16 | disposition short-term general hospital (02) | LOC: EMS 11:15 | PROVIDERS: ATTEND Surgery | DX: J44.0 Chronic obstructive pulmonary disease with (acute) lower respiratory infection (principal); J18.9 Pneumonia, unspecified organism ==